=== PATIENT | male | born 1975 | race Caucasian/White ===

== ENCOUNTER 2017-05-24 16:27 | Inpatient (IN) | payer MEDICARE, MEDICAID ==
[~2017-05-24] VITALS: Ht 167.6 cm; Wt 90.9 kg
[~2017-05-24 16:27] MED LIST: ATEN-51 PO; ATOR10TA65 PO; LEVO88TA42 PO; METF500T4 PO
[2017-05-24 16:29] VITALS: Ht 167.6 cm; Wt 90.9 kg
--- NOTE | 2017-05-24 18:14 | RADRPT ---
PROCEDURE: XR Chest. CLINICAL INDICATION: chest pain TECHNIQUE: Single frontal view of the chest was obtained COMPARISON: 03/12/2016 FINDINGS: The heart and mediastinum are within normal limits. There are mild bibasilar atelectatic changes. The lungs are otherwise clear. There is no pleural effusion or pneumothorax. RPTAT: AA IMPRESSION: Mild bibasilar atelectatic changes. .Marcellus Zhu MD, MD Date Time Electronically viewed and signed by .Marcellus Zhu MD, on 05/24/2017 18:14 .S/
[2017-05-24 18:17] LABS: BASOPHILS % 0.6 % (0.0-2.0); EOSINOPHILS # 0.1 10^3/ul (0.0-0.5); HEMATOCRIT 36.9 % (42.0-52.0); LYMPHOCYTES # 1.8 10^3/ul (0.8-2.9); LYMPHOCYTES % 36.2 % (15.0-51.0); MEAN CORPUSCULAR HEMOGLOBIN 31.4 pg (29.0-33.0); MEAN CORPUSCULAR HGB CONC 35.2 g/dl (32.0-37.0); MEAN CORPUSCULAR VOLUME 89.1 fl (82.0-101.0); MEAN PLATELET VOLUME 9.3 fl (7.4-10.4); MONOCYTE # 0.6 10^3/ul (0.3-0.9); MONOCYTES % 11.6 % (0.0-11.0); NEUTROPHIL # 2.4 10^3/ul (1.6-7.5); NEUTROPHILS % 49.2 % (39.0-77.0); PLATELET COUNT 247 10^3/UL (140-415); RED BLOOD COUNT 4.14 10^6/ul (4.70-6.10); RED CELL DISTRIBUTION WIDTH 12.6 % (11.5-14.5); WHITE BLOOD COUNT 4.9 10^3/ul (4.8-10.8)
[2017-05-24 18:22] LABS: POSITIVE DIFF N
[2017-05-24 18:32] LABS: INR 0.83; PROTIME 11.4 Sec (12.2-14.2); PT RATIO 0.9
[2017-05-24 18:33] LABS: PARTIAL THROMBOPLASTIN TIME 29.3 Sec (25.0-35.0)
[2017-05-24 18:38] LABS: ALANINE AMINOTRANSFERASE 89 IU/L (13-69); ALBUMIN 4.3 g/dl (3.3-4.9); ALBUMIN/GLOBULIN RATIO 1.22; ALKALINE PHOSPHATASE 82 IU/L (42-121); ANION GAP 17 (8-16); ASPARTATE AMINO TRANSFERASE 57 IU/L (15-46); BLOOD UREA NITROGEN 9 mg/dl (7-20); CARBON DIOXIDE 24 mmol/L (21-31); CHLORIDE 111 mmol/L (97-110); CREATININE 0.98 mg/dl (0.61-1.24); GLUCOSE 218 mg/dl (70-220); POTASSIUM 3.9 mmol/L (3.5-5.1); SODIUM 148 mmol/L (135-144); TOTAL PROTEIN 7.8 g/dl (6.1-8.1)
[2017-05-24 18:50] LABS: TROPONIN-I < 0.012 ng/ml (0.00-0.12)
--- NOTE | 2017-05-24 19:33 | RADRPT ---
PROCEDURE: CT head, without contrast. CLINICAL INDICATION: Fall with head injury. TECHNIQUE: Noncontrast CT examination of the head, with axial, sagittal and coronal reformatted im ages. Automated dose exposure control was employed. CTDI: 43.16 and DLP: 720.23. COMPARISON: None. FINDINGS: No acute hemorrhage. Subarachnoid spaces are substantially preserved and symmetric. Ventricles ar e unremarkable. No mass effect. Lambert-white matter distinction is preserved without evident decreased attenuation t o suggest acute or recent infarct. Sinuses and osseous structures are unremarkable. IMPRESSION: No acute process in the head. RPTAT: [facility] Physician Imani Date Time Electronically viewed and signed by Physician Imani on 05/24/2017 19:32 RS/
--- NOTE | 2017-05-24 20:21 | RADRPT ---
PROCEDURE: CT CERVICAL SPINE WITHOUT CONTRAST CLINICAL INDICATION: Intoxication, fall, head injury. TECHNIQUE: CT scan of the cervical spine was performed. No IV contrast was administered. Coronal and sagittal reformatted images were obtained from the axial source images. Images were reviewed on a high-resolution PACS workstation. Dose report: Total exam DLP: 488 mGy-cm. CDTIvol = 22 mGy. One or more of the following dose reduction techniques were used: Automated exposure control Adjustment of the mA and/or kV according to patient size. Use of iterative reconstruction technique. COMPARISON: None FINDINGS: The vertebral body heights are preserved. There are no acute fractures. Alignment is intact with s light straightening of the normal cervical lordosis. The craniocervical junction and C1-C2 articulat ion are intact. The prevertebral and paravertebral soft tissues are unremarkable. Findings at specific disc levels: C2-3: Normal disc height. No central canal or neural foraminal narrowing. Mild bilateral facet arthr opathy. C3-4: Normal disc height with prominent anterior endplate osteophytes. Small focus of gas within the anterior superior endplate of C4. Mild annular bulge with mild central canal narrowing. No neural f oraminal narrowing. C4-5: Normal disc height with very small anterior endplate osteophytes. No central canal or neural f oraminal narrowing. C5-6: Normal disc height. No central canal or neural foraminal narrowing. Mild to moderate left and mild right facet arthropathy. C6-7: Normal disc height with very small anterior endplate osteophytes. No central canal or neural f oraminal narrowing. Mild left facet arthropathy. C7-T1: Normal disc height. No central canal or neural foraminal narrowing. RPTAT: ZZ IMPRESSION: 1. No acute fracture or dislocation. 2. Mild degenerative disc disease with prominent anterior endplate osteophytes at C3-C4 with a mild annular bulge and mild central canal narrowing. 3. Mild/mild to moderate facet arthropathy bilaterally at C2-C3 and on the left at C5-C6 and C6-C7. .Nhi Yousif MD, MD Date Time Electronically viewed and signed by .Nhi Yousif MD, MD on 05/24/2017 20:21 .T/
[2017-05-24] MEDS ORDERED: SOD CHLORIDE 0.9% 1,000 ML IV ONE ×2 (22:00→22:30)
[2017-05-24] MEDS ORDERED: ACETAMINOPHEN 325 MG TAB PO ONE (23:00)
--- NOTE | 2017-05-25 00:23 | ERD ---
ER Documentation Chief Complaint Date/Time DATE: 05/25/17 TIME: 00:23 Chief Complaint BROUGHT BY RA 881, RUQ AP , VOMITING OF BLOOD X 1 HR, HX PANCREATITIS,ETOH HPI This is a 42 yo male with a PMH of HTN, HLD, DM, hypothyroidism, chronic daily EtOH abuse, previous bouts of pancreatitis who is presenting with 1-2 days of LUQ abd pain, nausea and vomiting. The patient initially reported blood in his vomit, but he later changed his story and said that his vomit was yellow/green. He also endorses chronic daily heavy drinking. He notes that he drank several beers today. He does not typically drink wine or liquor. The patient was initially lethargic but arousable. He was oriented 3, but not completely to situation. Initially told me that he had fallen and struck his head, but later in the course he did not believe that he fell today. The patient does feel sick, but he denies fever or chills. He denies headache. He denies chest pain or trouble breathing. He denies issues with bowel movements urination. He has had no diarrhea. He has had no blood in urine or stool that he is aware of. ROS All systems reviewed and are negative except as per history of present illness. Medications Home Meds Discontinued Reported Medications Metformin Hcl* (Metformin Hcl*) 500 Mg Tablet, 500 MG PO WITH BREAKFAST DINNE, # 30 TAB 02/03/16 Levothyroxine Sodium* (Levoxyl*) 88 Mcg Tablet, 88 MCG PO BEFORE BREAKFAST, #30 TAB 02/03/16 Atorvastatin Calcium (Atorvastatin Calcium) 10 Mg Tablet, 10 MG PO QHS, #30 TAB 02/03/16 Atenolol* (Atenolol*) 25 Mg Tablet, 25 MG PO BID, #60 TAB 02/03/16 Allergies Allergies: Coded Allergies: No Known Allergy (Verified , 05/24/17) PMhx/Soc History of Surgery: Yes (PICC Line Placement) Anesthesia Reaction: No Hx Neurological Disorder: No Hx Respiratory Disorders: No Hx Cardiac Disorders: Yes (SVT) Hx Psychiatric Problems: Yes (Depression,Opiate OD) Hx Miscellaneous Medical Probl: Yes (ETOH Ketoacidosis,Pancreatitis,R Ankle Injury,Fall) Hx Alcohol Use: Yes (5 cans of beer/day) Hx Substance Use: No Hx Tobacco Use: Yes Smoking Status: Current every day smoker FmHx Family History: coronary disease, diabetes Physical Exam Vitals Vital Signs Date Time Temp Pulse Resp B/P Pulse Ox O2 Delivery O2 Flow Rate FiO2 05/25/17 00:00 98.0 87 20 132/86 100 Room Air 05/24/17 21:45 98.0 97 20 125/84 95 Room Air 05/24/17 18:30 98.0 101 20 118/76 95 Room Air 05/24/17 16:29 98.0 92 20 140/100 7 Physical Exam Const: Lethargic, Arousable, NAD, Well developed, Well nourished Head: Atraumatic Eyes: Normal Conjunctiva ENT: Normal External Ears, Nose and Mouth. Neck: Full range of motion..~ No meningismus. Resp: Clear to auscultation bilaterally Cardio: Regular rate and rhythm, no murmurs Abd: Soft, non distended, LUQ tenderness. Normal bowel sounds Skin: No petechiae or rashes Back: No midline or flank tenderness Ext: No cyanosis, or edema Neur: Normal sensation and strength Psych: Intoxicated Result Diagram: 05/24/17 1805 05/24/17 180 Results 24 hrs Laboratory Tests Test 05/24/17 18:05 05/25/17 00:15 White Blood Count 4.910^3/ul Red Blood Count 4.1410^6/ul Hemoglobin 13.0g/dl Hematocrit 36.9% Mean Corpuscular Volume 89.1fl Mean Corpuscular Hemoglobin 31.4pg Mean Corpuscular Hemoglobin Concent 35.2g/dl Red Cell Distribution Width 12.6% Platelet Count 88116^3/UL Mean Platelet Volume 9.3fl Neutrophils % 49.2% Lymphocytes % 36.2% Monocytes % 11.6% Eosinophils % 1.0% Basophils % 0.6% Nucleated Red Blood Cells % 0.0/100WBC Neutrophils # 2.410^3/ul Lymphocytes # 1.810^3/ul Monocytes # 0.610^3/ul Eosinophils # 0.110^3/ul Basophils # 0.010^3/ul Nucleated Red Blood Cells # 0.010^3/ul Prothrombin Time 11.4Sec Prothrombin Time Ratio 0.9 INR International Normalized Ratio 0.83 Activated Partial Thromboplast Time 29.3Sec Sodium Level 148mmol/L Potassium Level 3.9mmol/L Chloride Level 111mmol/L Carbon Dioxide Level 24mmol/L Anion Gap 17 Blood Urea Nitrogen 9mg/dl Creatinine 0.98mg/dl Glucose Level 218mg/dl Calcium Level 9.0mg/dl Total Bilirubin 0.0mg/dl Direct Bilirubin 0.00mg/dl Indirect Bilirubin 0.0mg/dl Aspartate Amino Transf (AST/SGOT) 57IU/L Alanine Aminotransferase (ALT/SGPT) 89IU/L Alkaline Phosphatase 82IU/L Troponin I < 0.012ng/ml Total Protein 7.8g/dl Albumin 4.3g/dl Globulin 3.50g/dl Albumin/Globulin Ratio 1.22 Ethyl Alcohol Level 274.0mg/dl Lipase 470U/L Current Medications Medications (Trade) Dose Ordered Sig/Asher Route PRN Reason Start Time Stop Time Status Last Admin Dose Admin Sodium Chloride 1,000 ml @ 1,000 mls/hr Q1H ONCE IV 05/24/17 22:00 05/24/17 22:59 DC 05/24/17 21:33 Sodium Chloride (NS) 1,000 ml @ 1,000 mls/hr Q1H ONCE IV 05/24/17 22:30 05/24/17 23:29 DC 05/24/17 23:27 Acetaminophen (Tylenol Tab) 650 mg ONCE ONCE PO 05/24/17 23:00 05/24/17 23:01 DC 05/24/17 22:50 Procedures/MDM MDM The patient presents intoxicated. He also presents with left upper quadrant abdominal pain, and I do suspect pancreatitis. The patient initially described hematemesis, but he has not had any episodes in the emergency department and he later endorsed green/yellow vomit, so it is unclear if he truly had hematemesis. Blood work will need to be obtained and reviewed. Given the patient's uncertainty about head trauma, a CT scan will be completed of the head. Labs The patient has no leukocytosis or left shift. He is afebrile I do not suspect a systemic infection. The patient does have a mild anemia at 13, but this does not need to be emergently treated. I have less suspicion for hematemesis in this patient. The patient's CMP demonstrates elevated sodium and chloride. The patient will be given IV fluids in the emergency department. This is likely related to hemoconcentration. She does have mild elevation of his LFTs, likely related to his alcohol abuse. The rest of the CMP is unremarkable. Patient's lipase is elevated at 480. The patient is intoxicated with an elevated alcohol level. The patient not have a coagulopathy based on his INR. Imaging CTH FINDINGS: No acute hemorrhage. Subarachnoid spaces are substantially preserved and symmetric. Ventricles are unremarkable. No mass effect. Lambert- white matter distinction is preserved without evident decreased attenuation to suggest acute or recent infarct. Sinuses and osseous structures are unremarkable. IMPRESSION: No acute process in the head. Electronically viewed and signed by Physician Imani on 05/24/2017 19:32 CT C-spine IMPRESSION: No acute fracture or dislocation. Mild degenerative disc disease with prominent anterior endplate osteophytes at C3-C4 with a mild annular bulge and mild central canal narrowing. Mild/mild to moderate facet arthropathy bilaterally at C2-C3 and on the left at C5-C6 and C6-C7. Electronically viewed and signed by .Nhi Yousif MD, MD on 05/24/2017 20: 21 CXR IMPRESSION: Mild bibasilar atelectatic changes. Electronically viewed and signed by .Marcellus Zhu MD, on 05/24/2017 18: 14 Treatment/Disposition Patient was given IV fluids in the emergency department. He may require pain medication and antiemetics in the hospital. The patient will be admitted to the hospital with concerns of pancreatitis. He was accepted by Dr. Rivera at 12: 56 AM on May 25, 2017. He needs social work consultation regarding the need to quit drinking. EtOH withdrawal precautions will need to be maintained in the hospital. Departure Diagnosis: Primary Impression: Pancreatitis Chronicity: chronic Pancreatitis type: alcohol induced Qualified Code: K86.0 - Alcohol-induced chronic pancreatitis Additional Impressions: Abdominal pain Abdominal location: left upper quadrant Qualified Code: R10.12 - Left upper quadrant pain Nausea & vomiting Vomiting type: unspecified Vomiting Intractability: unspecified Qualified Code: R11.2 - Nausea and vomiting, intractability of vomiting not specified, unspecified vomiting type Condition: IRINEO Luis MD May 25, 2017 00:23
[2017-05-25] MEDS ORDERED: LORAZEPAM 2 MG INJ IV PRN ×2 (04:00)
[2017-05-25] MEDS ORDERED: ALBUTEROL 0.083% (NEB) 2.5 MG/3 ML AMP NEB PRN (04:00)
[2017-05-25] MEDS ORDERED: ONDANSETRON 4 MG INJ IV PRN (04:00)
[2017-05-25] MEDS ORDERED: NACL 0.9% 3 ML SYG IV SCH (04:00)
[2017-05-25] MEDS: DEXTROSE 5%-0.45% NACL 1,000 ML IV SCH ×4 (04:30→23:41)
[2017-05-25] MEDS: morphine 4 MG/ML VIAL IV PRN ×4 (04:31→20:50)
[2017-05-25 05:38] LABS: BASOPHILS % 0.5 % (0.0-2.0); EOSINOPHILS # 0.1 10^3/ul (0.0-0.5); EOSINOPHILS % 3.1 % (0.0-7.0); HEMATOCRIT 35.5 % (42.0-52.0); HEMOGLOBIN 11.9 g/dl (14.0-18.0); LYMPHOCYTES # 1.4 10^3/ul (0.8-2.9); LYMPHOCYTES % 32.5 % (15.0-51.0); MEAN CORPUSCULAR HEMOGLOBIN 30.4 pg (29.0-33.0); MEAN CORPUSCULAR HGB CONC 33.5 g/dl (32.0-37.0); MEAN CORPUSCULAR VOLUME 90.6 fl (82.0-101.0); MONOCYTE # 0.5 10^3/ul (0.3-0.9); NEUTROPHIL # 2.1 10^3/ul (1.6-7.5); NEUTROPHILS % 50.7 % (39.0-77.0); PLATELET COUNT 178 10^3/UL (140-415); RED BLOOD COUNT 3.92 10^6/ul (4.70-6.10); WHITE BLOOD COUNT 4.2 10^3/ul (4.8-10.8)
[2017-05-25 06:09] LABS: ALBUMIN 3.6 g/dl (3.3-4.9); ALBUMIN/GLOBULIN RATIO 1.16; CALCIUM 8.2 mg/dl (8.4-10.2); CHOL/HDL RATIO 4.3 RATIO; CREATININE 0.82 mg/dl (0.61-1.24); MAGNESIUM 1.8 mg/dl (1.7-2.5); PHOSPHORUS 3.4 mg/dl (2.5-4.9); POTASSIUM 3.8 mmol/L (3.5-5.1); TOTAL PROTEIN 6.7 g/dl (6.1-8.1)
[2017-05-25 07:00] VITALS: TEMP 97.8
--- NOTE | 2017-05-25 07:07 | HP ---
Date/Time of Note Date/Time of Note DATE: 05/25/17 TIME: 06:57 Assessment/Plan VTE Prophylaxis VTE Prophylaxis Intervention: SCD's Lines/Catheters IV Catheter Type (from Nrs): Saline Lock Assessment/Plan Assessment/Plan 1. Alcoholic pancreatitis -N.p.o. with IV fluid -Pain management 2. Abdominal pain, secondary to above 3. Elevated transaminases, most likely secondary to alcoholic liver disease -Patient also with a history of fatty liver -Monitor for now 4. Hypernatremia -Likely from volume contraction -Check a.m. lab 5. Alcohol abuse -Advised about importance of abstinence -Social work consult 6. History HyperTriglyceridemia -will check fasting lipid in a.m. HPI/ROS Admit Date/Time Admit Date/Time Hx of Present Illness This is a 42-year-old male with a history of alcohol abuse, pancreatitis and dyslipidemia who presented to the emergency department complaining of abdominal pain. Pain is diffuse but it is worse on the left side. He said he drinks beer on a daily basis. He reported associated nausea and bilious vomiting. When he presented to the ER his lipase was 470, sodium 148, AST 57 and ALT 89. PMH/Family/Social Social History Smoking Status: Current every day smoker Exam/Review of Systems Vital Signs Vitals Vital Signs Date Time Temp Pulse Resp B/P Pulse Ox O2 Delivery O2 Flow Rate FiO2 05/25/17 06:00 98.0 85 20 148/100 100 Room Air Exam Constitutional: alert, oriented, well developed Head: atraumatic, normocephalic Eyes: EOMI, PERRL Respiratory: clear to auscultation, normal air movement Cardiovascular: nl pulses, regular rate and rhythm Gastrointestinal: soft, tender Extremities: normal pulses Labs Result Diagram: 05/25/1751905/25/17519 Medications Medications Current Medications Dextrose/Sodium Chloride (D5-1/2ns) 1,000 ml @ 150 mls/hr Q6H40M IV Last administered on 05/25/17 04:30; Admin Dose 150 MLS/HR; Start 05/25/17 at 03:51 Ondansetron HCl (Zofran Inj) 4 mg Q6H PRN IV NAUSEA AND/OR VOMITING Last administered on 05/25/17 04:30; Admin Dose 4 MG; Start 05/25/17 at 04:00 Morphine Sulfate (morphine) 4 mg Q4H PRN IV pain Last administered on t 04:31; Admin Dose 4 MG; Start 05/25/17 at 04:00 Famotidine (Pepcid Iv) 20 mg Q12 IV ; Start 05/25/17 at 09:00 Enoxaparin Sodium 40 mg 40 mg DAILY SC ; Start 05/25/17 at 09:00 Multivitamins/ Thiamine HCl/ Folic Acid/Sodium Chloride (Mvi Adult/ Vitamin B1/ Folic Acid/NS) 1,011.2 ml @ 125 mls/ hr DAILY@09 IVPB ; Start 05/25/17 at 09:00 ; Stop 05/28/17 at 08:00 Lorazepam (Ativan) 1 mg Q4H PRN IV anxiety; Start 05/25/17 at 04:00 Lorazepam (Ativan) 2 mg Q1H PRN IV withdrawal; Start 05/25/17 at 04:00 Chlordiazepoxide (Librium) 25 mg TID PO ; Start 05/25/17 at 09:00 DIANE WEINER MD May 25, 2017 07:07
[2017-05-25 08:00] VITALS: BP 145/78; PULSE 78; RESP 18
[2017-05-25] MEDS: ENOXAPARIN 40 MG/0.4 ML SYG SC SCH (09:00)
[2017-05-25] MEDS: CHLORDIAZEPOXIDE 25 MG CAP PO SCH ×3 (09:00→20:46)
[2017-05-25] MEDS: MULTIVITAMINS 10 ML, THIAMINE 100 MG, FOLIC ACID 1 MG in SOD CHLORIDE 0.9% 1,000 ML IVPB SCH (09:31)
[2017-05-25] MEDS: FAMOTIDINE 20 MG INJ IV SCH ×2 (09:31→20:47)
[2017-05-25 14:00] VITALS: BP_SYST 141; BP_SYST 157; BP_DIAS 79; BP_DIAS 86; PULSE 77; RESP 18; RESP 19
[2017-05-25] MEDS ORDERED: MTF1000T PO (14:12)
[2017-05-25] MEDS: INSULIN ASPART [NOVOLOG] 3 ML PEN SC SCH ×2 (18:07→23:47)
[2017-05-25] MEDS ORDERED: GLUCAGON 1 MG INJ IM PRN (18:30)
[2017-05-25] MEDS ORDERED: GLUCOSE GEL 15 GRAM TUBE BUCCAL PRN (18:30)
[2017-05-25] MEDS ORDERED: DEXTROSE 50% 50 ML SYRINGE IV PRN ×2 (18:30)
[2017-05-25] MEDS ORDERED: GLUCOSE GEL 15 GRAM TUBE PO PRN ×2 (18:30)
[2017-05-25 19:43] VITALS: BP 150/91; RESP 18
[2017-05-26] MEDS: morphine 4 MG/ML VIAL IV PRN ×2 (01:07→05:37)
[2017-05-26 01:45] VITALS: BP 143/96; RESP 18
[2017-05-26 05:10] LABS: BASOPHILS % 0.4 % (0.0-2.0); EOSINOPHILS # 0.2 10^3/ul (0.0-0.5); EOSINOPHILS % 3.8 % (0.0-7.0); HEMATOCRIT 35.6 % (42.0-52.0); HEMOGLOBIN 12.2 g/dl (14.0-18.0); LYMPHOCYTES # 1.7 10^3/ul (0.8-2.9); MEAN CORPUSCULAR HEMOGLOBIN 30.8 pg (29.0-33.0); MEAN CORPUSCULAR HGB CONC 34.3 g/dl (32.0-37.0); MEAN CORPUSCULAR VOLUME 89.9 fl (82.0-101.0); MEAN PLATELET VOLUME 9.1 fl (7.4-10.4); MONOCYTE # 0.6 10^3/ul (0.3-0.9); MONOCYTES % 12.6 % (0.0-11.0); NEUTROPHIL # 2.4 10^3/ul (1.6-7.5); NEUTROPHILS % 48.2 % (39.0-77.0); PLATELET COUNT 195 10^3/UL (140-415); RED BLOOD COUNT 3.96 10^6/ul (4.70-6.10); RED CELL DISTRIBUTION WIDTH 12.1 % (11.5-14.5); WHITE BLOOD COUNT 4.9 10^3/ul (4.8-10.8)
[2017-05-26 05:30] LABS: CALCIUM 7.9 mg/dl (8.4-10.2); CREATININE 0.89 mg/dl (0.61-1.24); MAGNESIUM 1.7 mg/dl (1.7-2.5); PHOSPHORUS 2.8 mg/dl (2.5-4.9); POTASSIUM 3.6 mmol/L (3.5-5.1)
[2017-05-26] MEDS: INSULIN ASPART [NOVOLOG] 3 ML PEN SC SCH ×3 (06:00→18:00)
[2017-05-26] MEDS: DEXTROSE 5%-0.45% NACL 1,000 ML IV SCH ×2 (06:26→13:11)
[2017-05-26 07:43] VITALS: BP 140/84; RESP 19
[2017-05-26] MEDS ORDERED: ATENOLOL 25 MG TAB PO SCH (09:00)
--- NOTE | 2017-05-26 09:22 | PN ---
Date/Time of Note Date/Time of Note DATE: 05/26/17 TIME: 09:17 Assessment/Plan VTE Prophylaxis VTE Prophylaxis Intervention: LMWH Lines/Catheters IV Catheter Type (from Nrs): Peripheral IV Urinary Cath still in place: No Assessment/Plan Assessment/Plan 1. Abdominal pain - Diffusely distended abdomen with no BMs since admission but is passing flatus - Will order CT abd/pelvis with and without contrast to r/o SBO vs other abnormality - Will keep NPO 2. Alcoholic pancreatitis - N.p.o. with IV fluid - Pain management 3. Elevated transaminases, most likely secondary to alcoholic liver disease - Patient also with a history of fatty liver - Will continue to monitor 4. Hypernatremia- resolved -Likely from volume contraction 5. Alcohol abuse - Advised about importance of abstinence - Social work consult - On librium and will taper 6. History HyperTriglyceridemia - certified personal finance counselor about proper diet and exercise - TG 341 Subjective 24 Hr Interval Summary Free Text/Dictation Patient seen and examined. C/o severe abdominal pain with nausea. He is receiving Morphine with minimal relief. Is experiencing flatus but denies any BMs since admission. Denies chest pain, SOB, dizziness, vomiting, or headaches. Exam/Review of Systems Vital Signs Vitals Vital Signs Date Time Temp Pulse Resp B/P Pulse Ox O2 Delivery O2 Flow Rate FiO2 05/26/17 07:43 98.0 82 19 140/84 98 05/25/17 14:00 Room Air Intake and Output 05/25/17 05/25/17 05/26/17 15:00 23:00 07:00 Intake Total 1000 ml 2050 ml Output Total 1500 ml Balance 1000 ml 550 ml Exam Constitutional: alert, oriented, well developed, distress secondary to pain Head: atraumatic, normocephalic Eyes: EOMI, PERRL Respiratory: clear to auscultation, normal air movement Cardiovascular: nl pulses, regular rate and rhythm Gastrointestinal: distended, tender in RUQ, hypoactive BS, tympanic Extremities: normal pulses Results Result Diagram: 05/26/17 0444 05/26/17 0444 Results 24 hrs Laboratory Tests Test 05/25/17 17:52 05/25/17 23:43 05/26/17 04:44 05/26/17 05:39 Bedside Glucose 125 117 136 White Blood Count 4.9 Red Blood Count 3.96 L Hemoglobin 12.2 L Hematocrit 35.6 L Mean Corpuscular Volume 89.9 Mean Corpuscular Hemoglobin 30.8 Mean Corpuscular Hemoglobin Concent 34.3 Red Cell Distribution Width 12.1 Platelet Count 195 Mean Platelet Volume 9.1 Neutrophils % 48.2 Lymphocytes % 34.0 Monocytes % 12.6 H Eosinophils % 3.8 Basophils % 0.4 Nucleated Red Blood Cells % 0.0 Neutrophils # 2.4 Lymphocytes # 1.7 Monocytes # 0.6 Eosinophils # 0.2 Basophils # 0.0 Nucleated Red Blood Cells # 0.0 Sodium Level 138 Potassium Level 3.6 Chloride Level 107 Carbon Dioxide Level 29 Anion Gap 6 L Blood Urea Nitrogen 6 L Creatinine 0.89 Glucose Level 133 Calcium Level 7.9 L Phosphorus Level 2.8 Magnesium Level 1.7 Medications Medications Current Medications Dextrose/Sodium Chloride (D5-1/2ns) 1,000 ml @ 150 mls/hr Q6H40M IV Last administered on 05/26/17 06:26; Admin Dose 150 MLS/HR; Start 05/25/17 at 03:51 Ondansetron HCl (Zofran Inj) 4 mg Q6H PRN IV NAUSEA AND/OR VOMITING Last administered on 05/25/17 04:30; Admin Dose 4 MG; Start 05/25/17 at 04:00 Morphine Sulfate (morphine) 4 mg Q4H PRN IV pain Last administered on 05:37; Admin Dose 4 MG; Start 05/25/17 at 04:00 Famotidine (Pepcid Iv) 20 mg Q12 IV Last administered on 05/25/17 20:47; Admin Dose 20 MG; Start 05/25/17 at 09:00 Enoxaparin Sodium 40 mg 40 mg DAILY SC ; Start 05/25/17 at 09:00 Multivitamins/ Thiamine HCl/ Folic Acid/Sodium Chloride (Mvi Adult/ Vitamin B1/ Folic Acid/NS) 1,011.2 ml @ 125 mls/ hr DAILY@09 IVPB Last administered on 09:31; Admin Dose 125 MLS/HR; Start 05/25/17 at 09:00; Stop 05/28/17 at 08:00 Lorazepam (Ativan) 1 mg Q4H PRN IV anxiety; Start 05/25/17 at 04:00 Lorazepam (Ativan) 2 mg Q1H PRN IV withdrawal; Start 05/25/17 at 04:00 Chlordiazepoxide (Librium) 25 mg TID PO Last administered on 05/25/17t 20:46; Admin Dose 25 MG; Start 05/25/17 at 09:00 Atenolol (Tenormin) 25 mg DAILY PO ; Start 05/26/17 at 09:00 Insulin Aspart (Novolog Insulin Pen) NOVOLOG *MILD* ALGORITHM Q6 SC ; Start at 18:30 Miscellaneous Information 1 ea NOTE XX ; Start 05/25/17 at 18:30 Glucose (Glutose) 15 gm Q15M PRN PO DECREASED GLUCOSE; Start 05/25/17 at 18:30 Glucose (Glutose) 22.5 gm Q15M PRN PO DECREASED GLUCOSE; Start 05/25/17 at 18: 30 Dextrose (D50w Syringe) 25 ml Q15M PRN IV DECREASED GLUCOSE; Start 05/25/17 at 18:30 Dextrose (D50w Syringe) 50 ml Q15M PRN IV DECREASED GLUCOSE; Start 05/25/17 at 18:30 Glucagon (Glucagen) 1 mg Q15M PRN IM DECREASED GLUCOSE; Start 05/25/17 at 18:30 Glucose (Glutose) 15 gm Q15M PRN BUCCAL DECREASED GLUCOSE; Start 05/25/17 at 18 :30 Hydromorphone HCl (Dilaudid) 1 mg Q4H PRN IV SEVERE PAIN LEVEL 7-10; Start at 09:30; Status MONIK SAPP MD May 26, 2017 09:22
[2017-05-26] MEDS ORDERED: BARIUM SULF 2% 450 ML BTL (BERRY SMOOTHIE) PO ONE (09:30)
[2017-05-26] MEDS: CHLORDIAZEPOXIDE 25 MG CAP PO SCH ×2 (09:56→14:00)
[2017-05-26] MEDS: FAMOTIDINE 20 MG INJ IV SCH (09:56)
[2017-05-26] MEDS: HYDROmorphONE 1 MG/ML SYG IV PRN ×3 (09:59→18:07)
[2017-05-26] MEDS: ENOXAPARIN 40 MG/0.4 ML SYG SC SCH (10:08)
[2017-05-26] MEDS ORDERED: SOD CHLORIDE 0.9% 100 ML ONE (13:15)
[2017-05-26] MEDS ORDERED: IODIXANOL LOCM 100 ML BTL ONE (13:15)
[2017-05-26] MEDS: MULTIVITAMINS 10 ML, THIAMINE 100 MG, FOLIC ACID 1 MG in SOD CHLORIDE 0.9% 1,000 ML IVPB SCH (14:11)
--- NOTE | 2017-05-26 15:53 | RADRPT ---
PROCEDURE: CT abdomen and pelvis with contrast. CLINICAL INDICATION: Worsening abdominal pain and abdominal distension. TECHNIQUE: CT scan of the abdomen and pelvis with contrast was performed after the uneventful intrav enous administration of 100 cc of Visipaque 320. Coronal and sagittal reformatted images were obtain ed from the axial source images. The total exam CTDI equals 16.66 mGy and the total exam DLP equals 1091.46 mGy-cm. One or more of the following dose reduction techniques were used: - Automated exposure control. - Adjustment of the mA and/or kV according to patient size. - Use of iterative reconstruction technique. COMPARISON: CT dated 04/15/2013. FINDINGS: Visualized lower thorax: The visualized lung bases are clear. The visualized heart is unremarkable. Hepatobiliary system and spleen: There is diffuse fatty infiltration of the liver, which is enlarge d measuring 19.7 cm in length. No focal hepatic lesion is identified. There is no intra or extrahepa tic biliary ductal dilatation. The gallbladder is unremarkable. The spleen is unremarkable. The panc reas is unremarkable. Adrenal glands and genitourinary system: The adrenal glands are unremarkable. There is a duplicated right renal collecting system with similar atrophy of the lower pole moiety. There are no renal mas ses or hydronephrosis. The urinary bladder is unremarkable. The prostate gland and seminal vesicles are unremarkable. Gastrointestinal system: The stomach and small bowel are unremarkable. There is no bowel wall thick ening or evidence of obstruction. The appendix is not identified, but there are no secondary finding s of appendicitis. Peritoneum, vascular system, lymphatics: There is no free intraperitoneal air or free fluid. There is no mesenteric or retroperitoneal adenopathy. The aorta is nonaneurysmal. Musculoskeletal system and soft tissues: There is mild multilevel degenerative enthesopathy. There are no concerning osseous lesions. The soft tissues are unremarkable. IMPRESSION: 1. Hepatomegaly and hepatic steatosis. 2. Duplicated right renal collecting system, a normal anatomical variant. RPTAT: HLBP .Luis Alberto Neville MD, MD Date Time Electronically viewed and signed by .Luis Alberto Neville MD, MD on 05/26/2017 15:53 .P/
--- NOTE | 2017-05-27 08:57 | DS ---
Date/Time of Note Date/Time of Note DATE: 05/27/17 TIME: 08:57 Discharge Summary Admission/Discharge Info Admit Date/Time May 25, 2017 at 06:35 Discharge Date/Time May 26, 2017 at 18:40 Discharge Diagnosis Acute pancreatitis Patient Condition: Fair Hx of Present Illness This is a 42-year-old male with a history of alcohol abuse, pancreatitis and dyslipidemia who presented to the emergency department complaining of abdominal pain. Pain is diffuse but it is worse on the left side. He said he drinks beer on a daily basis. He reported associated nausea and bilious vomiting. When he presented to the ER his lipase was 470, sodium 148, AST 57 and ALT 89. Hospital Course Patient was admitted and kept NPO and started on IVF and pain control. Abdominal pain was worsening and CT scan of abdomen and pelvis was ordered. He was found to have hepatomegaly and steatosis. Patient was found eating by nurse and was told he is supposed to keep NPO due to his pancreatitis. He was also found drinking water as well. MD nursing education specialist allowed patient to start a diet and be discharged later if tolerating but patient decided he wanted to leave AMA and eat at home despite being advised to stay inpatient. Home Meds Reported Medications Metformin* (Glucophage*) 1,000 Mg Tablet, 1000 MG PO BID, #60 TAB 05/25/17 Discontinued Reported Medications Metformin Hcl* (Metformin Hcl*) 500 Mg Tablet, 500 MG PO WITH BREAKFAST DINNE, # 30 TAB 02/03/16 Levothyroxine Sodium* (Levoxyl*) 88 Mcg Tablet, 88 MCG PO BEFORE BREAKFAST, #30 TAB 02/03/16 Atorvastatin Calcium (Atorvastatin Calcium) 10 Mg Tablet, 10 MG PO QHS, #30 TAB 02/03/16 Atenolol* (Atenolol*) 25 Mg Tablet, 25 MG PO BID, #60 TAB 02/03/16 Follow-up Plan Return to ED if experiencing worsening abdominal pain. Establish care with PCP. Primary Care Provider Care Physician No Primary Time spent on discharge: < 30 minutes Pending Labs Laboratory Tests Test 05/26/17 14:02 05/26/17 18:11 Bedside Glucose 130mg/dL (70-220) 106mg/dL (70-220) MONIK MICHELE MD May 27, 2017 08:57
== END 2017-05-26 18:40 | disposition left against medical advice (07) | DRG 439 ==
LOC: E/R 16:27 → MS1 05-25 06:35 → UNDOADMIN 05-25 06:36 → MS1 05-25 06:36
PROVIDERS: ADMIT Internal Medicine; ATTEND Internal Medicine
DX: K85.20 Alcohol induced acute pancreatitis without necrosis or infection (principal); E87.0 Hyperosmolality and hypernatremia; K70.9 Alcoholic liver disease, unspecified; F10.20 Alcohol dependence, uncomplicated; E78.1 Pure hyperglyceridemia; F17.210 Nicotine dependence, cigarettes, uncomplicated; R16.0 Hepatomegaly, not elsewhere classified
CPT/HCPCS: 36415; 70450; 71010; 72125; 74177; 80048; 80053; 80061; 80306; 82962; 83690; 83735; 84100; 84484; 85025; 85610; 85730; 86850; 86900; 86901; 93005; 96361; 96374; 96375; J1170; J1650; J1815; J2270; J2405; J3411; J7030; J7042; Q9967

== ENCOUNTER 2019-02-25 19:13 | Emergency (ER) | payer MEDICAID, MEDICARE ==
[~2019-02-25] VITALS: Ht 172.7 cm; Wt 94.9 kg
[~2019-02-25 19:13] MED LIST changes: -ATEN-51 PO; -ATOR10TA65 PO; -LEVO88TA42 PO; -METF500T4 PO; +MTF1000T PO
[2019-02-25 20:34] VITALS: BP 143/86; PULSE 114; RESP 18; Ht 172.7 cm; Wt 94.9 kg
== END 2019-02-25 22:00 | disposition left against medical advice (07) ==
LOC: E/R 19:13
DX: Z53.21 Procedure and treatment not carried out due to patient leaving prior to being seen by health care provider (principal)

== ENCOUNTER 2019-02-25 23:36 | Emergency (ER) | payer SELFPAY ==
[~2019-02-25] VITALS: Ht 170.2 cm; Wt 100.0 kg
[2019-02-25 23:42] VITALS: BP 148/92; PULSE 113; RESP 20; Ht 170.2 cm; Wt 100.0 kg
== END 2019-02-26 03:11 | disposition left against medical advice (07) ==
LOC: E/R 23:36
DX: Z53.21 Procedure and treatment not carried out due to patient leaving prior to being seen by health care provider (principal)

== ENCOUNTER 2019-03-15 20:55 | Inpatient (IN) | payer MEDICARE ==
[~2019-03-15] VITALS: Ht 172.7 cm; Wt 94.1 kg
[2019-03-15] MEDS ORDERED: ONDANSETRON 4 MG INJ IV STA (23:31)
[2019-03-15] MEDS ORDERED: CEFTRIAXONE 1 GM/50 ML (PMX) 50 ML IVPB STA (23:31)
[2019-03-15] MEDS ORDERED: SOD CHLORIDE 0.9% 500 ML IV STA (23:31)
[2019-03-15] MEDS ORDERED: OCTREOTIDE 50 MCG in SOD CHLORIDE 0.9% 25 ML IVPB STA (23:31)
[2019-03-15] MEDS ORDERED: PANTOPRAZOLE IV 80 MG in SOD CHLORIDE 0.9% 100 ML IVPB STA (23:31)
[2019-03-15] MEDS ORDERED: OCTREOTIDE 500 MCG in SOD CHLORIDE 0.9% 49 ML IV STA (23:31)
[2019-03-15] MEDS ORDERED: PANTOPRAZOLE IV 80 MG in SOD CHLORIDE 0.9% 100 ML IV STA (23:31)
[2019-03-15] MEDS ORDERED: HYDROmorphONE 0.5 MG/0.5 ML SYG IV STA (23:41)
[2019-03-16] MEDS ORDERED: SOD CHLORIDE 0.9% 1,000 ML IV SCH (03:59)
[2019-03-16] MEDS ORDERED: ONDANSETRON 4 MG INJ IV PRN ×2 (04:00)
[2019-03-16] MEDS ORDERED: NACL 0.9% 3 ML SYG IV SCH (04:00)
[2019-03-16] MEDS ORDERED: ACETAMINOPHEN 325 MG TAB PO PRN (04:00)
[2019-03-16] MEDS ORDERED: ACETAMINOPHEN 650 MG SUPP PR PRN (04:00)
--- NOTE | 2019-03-16 05:26 | ERD ---
ER Documentation Chief Complaint Chief Complaint bib ra 881 c/o abd pain/etoh/vomiting HPI This is a very pleasant 43-year-old male brought in by rescue with complaints of abdominal pain and vomiting coffee-ground. Patient has a history of chronic alcoholism he said he said 10-20 beers per day. He said history of esophageal varices in the past along with pancreatic cancer resection. ROS All systems reviewed and are negative except as per history of present illness. Medications Home Meds Discontinued Reported Medications Metformin* (Glucophage*) 1,000 Mg Tablet, 1000 MG PO BID, #60 TAB 05/25/17 Allergies Allergies: Coded Allergies: No Known Allergy (Unverified , 03/16/19) PMhx/Soc History of Surgery: Yes (tib-fib with screws and pins, hernia repair abdomen) Anesthesia Reaction: No Hx Neurological Disorder: No Hx Respiratory Disorders: No Hx Cardiac Disorders: Yes (HTN) Hx Psychiatric Problems: No Hx Miscellaneous Medical Probl: No Hx Alcohol Use: Yes Hx Substance Use: No Hx Tobacco Use: No Smoking Status: Never smoker Physical Exam Vitals Vital Signs Date Temp Pulse Resp B/P (MAP) Pulse Ox O2 O2 Flow FiO2 Time Delivery Rate 03/16/19 90 17 103/74 99 Nasal 2.0 03:00 (84) Cannula 03/16/19 93 19 96/65 (75) 96 Room Air 02:00 03/16/19 98 22 99/63 (75) 97 Room Air 01:30 03/15/19 98.2 118 18 145/81 98 21:07 (102) Physical Exam Const: No acute distress Head: Atraumatic Eyes: Normal Conjunctiva ENT: Normal External Ears, Nose and Mouth. Neck: Full range of motion. No meningismus. Resp: Clear to auscultation bilaterally Cardio: Regular rate and rhythm, no murmurs Abd: Soft, non tender, non distended. Normal bowel sounds Skin: No petechiae or rashes Back: No midline or flank tenderness Ext: No cyanosis, or edema Neur: Awake and alert Psych: Normal Mood and Affect Result Diagram: 03/15/19 6741 03/15/19 9286 Results 24 hrs Laboratory Tests Test 03/15/19 23:36 White Blood Count 5.3 10^3/ul Red Blood Count 4.33 10^6/ul Hemoglobin 13.8 g/dl Hematocrit 38.3 % Mean Corpuscular Volume 88.5 fl Mean Corpuscular Hemoglobin 31.9 pg Mean Corpuscular Hemoglobin Concent 36.0 g/dl Red Cell Distribution Width 13.0 % Platelet Count 301 10^3/UL Mean Platelet Volume 9.0 fl Immature Granulocytes % 0.900 % Neutrophils % 51.9 % Lymphocytes % 35.2 % Monocytes % 10.2 % Eosinophils % 0.9 % Basophils % 0.9 % Nucleated Red Blood Cells % 0.0 /100WBC Immature Granulocytes # 0.050 10^3/ul Neutrophils # 2.8 10^3/ul Lymphocytes # 1.9 10^3/ul Monocytes # 0.5 10^3/ul Eosinophils # 0.1 10^3/ul Basophils # 0.1 10^3/ul Nucleated Red Blood Cells # 0.0 10^3/ul Prothrombin Time 11.5 Sec Prothrombin Time Ratio 0.9 INR International Normalized Ratio 0.83 Activated Partial Thromboplast Time 30.6 Sec Sodium Level 145 mmol/L Potassium Level 4.0 mmol/L Chloride Level 112 mmol/L Carbon Dioxide Level 19 mmol/L Anion Gap 14 Blood Urea Nitrogen 15 mg/dl Creatinine 0.85 mg/dl Est Glomerular Filtrat Rate mL/min > 60 mL/min Glucose Level 220 mg/dl Calcium Level 8.4 mg/dl Total Bilirubin 0.2 mg/dl Direct Bilirubin 0.00 mg/dl Indirect Bilirubin 0.2 mg/dl Aspartate Amino Transf (AST/SGOT) 38 IU/L Alanine Aminotransferase (ALT/SGPT) 44 IU/L Alkaline Phosphatase 76 IU/L Troponin I < 0.012 ng/ml Total Protein 8.0 g/dl Albumin 4.3 g/dl Globulin 3.70 g/dl Albumin/Globulin Ratio 1.16 Current Medications Medications Dose Sig/Asher Start Time Status Last (Trade) Ordered Route PRN Stop Time Admin Dose Reason Admin Sodium 500 ml @ Q1H STAT 03/15/19 DC 03/15/19 Chloride 500 mls/hr IV 23:31 03/16/19 23:48 00:30 Pantoprazole 100 ml @ ONCE STAT 03/15/19 DC 03/16/19 80 mg/Sodium 400 mls/hr IVPB 23:31 03/15/19 00:02 Chloride 23:45 Pantoprazole 100 ml @ ONCE STAT 03/15/19 03/16/19 80 mg/Sodium 10 mls/hr IV 23:31 03/16/19 00:08 Chloride 09:30 Octreotide 26 ml @ Q16M STAT 03/15/19 DC 03/16/19 Acetate 50 100 mls/hr IVPB 23:31 03/15/19 00:02 mcg/ Sodium 23:46 Chloride Octreotide 50 ml @ 5 ONCE STAT 03/15/19 03/16/19 Acetate 500 mls/hr IV 23:31 03/16/19 00:08 mcg/ Sodium 09:30 Chloride Ondansetron 4 mg ONCE STAT 03/15/19 DC 03/15/19 HCl (Zofran IV 23:31 03/15/19 23:45 Inj) 23:32 Ceftriaxone 50 ml @ ONCE STAT 03/15/19 DC 03/15/19 Sodium 100 mls/hr IVPB 23:31 03/16/19 23:45 00:00 1 mg ONCE STAT 03/15/19 DC 03/15/19 Hydromorphone IV 23:41 03/15/19 23:45 HCl 23:42 (Dilaudid) Ondansetron 4 mg ER BRIDGE 03/16/19 HCl (Zofran PRN IV 04:00 Inj) NAUSEA/VOMITI 03/17/19 03:59 NG 650 mg ER BRIDGE 03/16/19 Acetaminophen PRN PO 04:00 (Tylenol .MILD PAIN 03/17/19 03:59 Tab) 1-3 OR TEMP Sodium 1,000 ml @ Q20H IV 03/16/19 Chloride 50 mls/hr 03:59 IV Flush 3 ml PER 03/16/19 (NS 3 ml) PROTOCOL IV 04:00 Ondansetron 4 mg Q6H PRN 03/16/19 HCl (Zofran IV 04:00 Inj) NAUSEA/VOMITI NG 650 mg Q6H PRN 03/16/19 Acetaminophen DE .PAIN 1-3 04:00 (Tylenol OR TEMP Supp) Morphine 2 mg Q4H PRN 03/16/19 Sulfate IV .PAIN 04:00 (morphine) 7-10 Octreotide 100 ml @ 5 Q20H IV 03/16/19 Acetate 1 mls/hr 04:30 mg/ Dextrose Pantoprazole 100 ml @ Q10H IV 03/16/19 80 mg/Sodium 10 mls/hr 04:30 Chloride Lorazepam 1 mg Q4H PRN 03/16/19 (Ativan) IV CONTROL 04:30 WITHDRAWAL SYMPTOMS Thiamine 200 mg DAILY IM 03/16/19 HCl 04:30 (Vitamin B1) 03/21/19 04:29 Procedures/MDM EKG: Rate/Rhythm: [Normal Sinus Rhythm] QRS, ST, T-waves: [No changes consistent w/ acute ischemia] Impression: [No evidence of ischemia or arrhythmia] Chest X-ray 1V Interpreted by me: Soft Tissue: No acute abnormalities Bones: No acute abnormalities Mediastinum/Cardiac Silhouette/Lungs: [No acute abnormalities] Medical decision making: This is a 43-year-old male with possible upper GI bleed. Start on Sandostatin and Protonix drip. Patient will be admitted to [facility] emetry to Dr. Flores for further evaluation management possible GI consultation Departure Diagnosis: Primary Impression: Upper GI bleed Condition: Stable DIANE AVILA Mar 16, 2019 05:26
[2019-03-16] MEDS ORDERED: ONDANSETRON 4 MG INJ IV STA (05:27)
[2019-03-16] MEDS ORDERED: HYDROmorphONE 1 MG/ML SYG IV STA (05:27)
[2019-03-16] MEDS ORDERED: SOD CHLORIDE 0.45% 1,000 ML IV SCH (06:00)
--- NOTE | 2019-03-16 08:05 | HP ---
Date/Time of Note Date/Time of Note DATE: 03/16/19 TIME: 07:58 Assessment/Plan VTE Prophylaxis SCD applied (from Nsg): Yes Pharmacological prophylaxis: NA/contraindicated Pharm contraindication: low risk/ambulating Lines/Catheters IV Catheter Type (from Nrsg): Saline Lock Assessment/Plan Hospital Course This is a 43-year-old male being admitted to the [facility] floor for: #1 acute upper GI bleed: Possibly secondary to underlying EtOH abuse. Sandostatin drip, Protonix drip. CBC every 6 hours. Will consult GI Suchov #2 abdominal pain: Patient does appear to have a distended and tender abdomen. His CT of the abdomen pelvis without contrast did not show any acute abnormalities. I will proceed with a CT of the abdomen pelvis with IV contrast to further evaluate. I will also order a lipase level given his history of EtOH as well as a history of pancreatitis. #3 alcohol abuse: Patient did have a blood alcohol level of 133. Will PRN Ativan, thiamine, folate, MVI #4 diabetes mellitus: We will check hemoglobin A 1C, insulin sliding scale #5 hypertension: Monitor patient blood pressures, PRN hydralazine #6 DVT GI prophylaxis: SCDs, Protonix drip Further treatment strategy will be implemented as per the clinical course Result Diagram: 03/16/1952703/16/19527 Results 24hrs Laboratory Tests Test 03/15/19 23:36 03/16/19 05:28 White Blood Count 5.3 4.2 #L Red Blood Count 4.33 L 3.94 L Hemoglobin 13.8 L 12.3 L Hematocrit 38.3 L 35.6 L Mean Corpuscular Volume 88.5 90.4 Mean Corpuscular Hemoglobin 31.9 31.2 Mean Corpuscular Hemoglobin Concent 36.0 34.6 Red Cell Distribution Width 13.0 13.2 Platelet Count 301 # 247 Mean Platelet Volume 9.0 9.0 Immature Granulocytes % 0.900 H 1.700 H Neutrophils % 51.9 40.9 Lymphocytes % 35.2 42.8 Monocytes % 10.2 12.5 H Eosinophils % 0.9 1.4 Basophils % 0.9 0.7 Nucleated Red Blood Cells % 0.0 0.0 Immature Granulocytes # 0.050 H 0.070 H Neutrophils # 2.8 1.7 Lymphocytes # 1.9 1.8 Monocytes # 0.5 0.5 Eosinophils # 0.1 0.1 Basophils # 0.1 0.0 Nucleated Red Blood Cells # 0.0 0.0 Prothrombin Time 11.5 L Prothrombin Time Ratio 0.9 INR International Normalized Ratio 0.83 Activated Partial Thromboplast Time 30.6 Sodium Level 145 H 145 H Potassium Level 4.0 4.5 Chloride Level 112 H 115 H Carbon Dioxide Level 19 L 19 L Anion Gap 14 H 11 Blood Urea Nitrogen 15 13 Creatinine 0.85 0.92 Est Glomerular Filtrat Rate mL/min > 60 > 60 Glucose Level 220 179 Calcium Level 8.4 7.8 L Total Bilirubin 0.2 0.2 Direct Bilirubin 0.00 0.00 Indirect Bilirubin 0.2 0.2 Aspartate Amino Transf (AST/SGOT) 38 29 Alanine Aminotransferase (ALT/SGPT) 44 44 Alkaline Phosphatase 76 59 Troponin I < 0.012 Total Protein 8.0 7.1 Albumin 4.3 3.6 Globulin 3.70 H 3.50 H Albumin/Globulin Ratio 1.16 1.02 Hemoglobin A1c 5.9 Magnesium Level 2.1 Triglycerides Level 516 H Cholesterol Level 170 LDL Cholesterol, Calculated 29 HDL Cholesterol 38 Cholesterol/HDL Ratio 4.4 Ethyl Alcohol Level 133.0 H HPI/ROS Admit Date/Time Admit Date/Time Hx of Present Illness Chief complaint: Abdominal pain, hematemesis This is a 43-year-old male with a past medical history of alcohol use who presents to the emergency department complaining of hematemesis x5 days. Patient reports he has had red and dark blood vomitus for the last 5 days. He does report that he is a alcohol drinker and daily. He reports 2-3 beers a day. He also reports that he is having abdominal pain and he has had a history of pancreatitis in the past. He denies any chest pain or diarrhea. Denies any bright red blood or dark stool per rectum. Allergies: NKDA Medications: See JARED COPPOLA Const: As per HPI Eyes : No pain discharge or redness or change in visual acuity ENT: No pain, sore throat, congestion, congestion, dysphagia or discharge Respiratory: No shortness of breath, cough, sputum, wheezing, or pleuritic pain Cardiovascular: No chest pain, palpitation, PND, or edema GI : As per HPI Genitourinary: No dysuria, hematuria, flank pain , discharge or CVA tenderness Musculoskeletal: No joint pain, back pain, neck pain, restricted range of motion in neck or joints Skin: No rash, bruising or hives Neuro: No headache, dizziness, syncope, seizure, focal weakness Endocrine: No polyuria, polydipsia, temperature intolerance Psych: No hallucination, depression, anxiety or suicidal ideation PMH/Family/Social Past Medical History Diabetes mellitus, hypertension Medications Current Medications Pantoprazole 80 mg/Sodium Chloride 100 ml @ 10 mls/hr ONCE STAT IV Last administered on 03/16/19at 00:08; Admin Dose 10 MLS/HR; Start 03/15/19 at 23:31; Stop 03/16/19 at 09:30 Octreotide Acetate 500 mcg/ Sodium Chloride 50 ml @ 5 mls/hr ONCE STAT IV Last administered on 03/16/19at 00:08; Admin Dose 5 MLS/HR; Start 03/15/19 at 23:31; Stop 03/16/19 at 09:30 Ondansetron HCl (Zofran Inj) 4 mg ER BRIDGE PRN IV NAUSEA/VOMITING; Start 03/16/19 at 04:00; Stop 03/17/19 at 03:59 Acetaminophen (Tylenol Tab) 650 mg ER BRIDGE PRN PO .MILD PAIN 1-3 OR TEMP; Start 03/16/19 at 04:00; Stop 03/17/19 at 03:59 IV Flush (NS 3 ml) 3 ml PER PROTOCOL IV ; Start 03/16/19 at 04:00 Ondansetron HCl (Zofran Inj) 4 mg Q6H PRN IV NAUSEA/VOMITING; Start 03/16/19 at 04:00 Acetaminophen (Tylenol Supp) 650 mg Q6H PRN [place] .PAIN 1-3 OR TEMP; Start 03/16/19 at 04:00 Morphine Sulfate (morphine) 2 mg Q4H PRN IV .PAIN 7-10; Start 03/16/19 at 04:00 Octreotide Acetate 1 mg/ Dextrose 100 ml @ 5 mls/hr Q20H IV ; Start 03/16/19 at 04:30 Pantoprazole 80 mg/Sodium Chloride 100 ml @ 10 mls/hr Q10H IV ; Start 03/16/19 at 04:30 Lorazepam (Ativan) 1 mg Q4H PRN IV CONTROL WITHDRAWAL SYMPTOMS; Start 03/16/19 at 04:30 Thiamine HCl (Vitamin B1) 200 mg DAILY IM ; Start 03/16/19 at 04:30; Stop 03/21/19 at 04:29 Coded Allergies: No Known Allergy (Unverified , 03/16/19) Past Surgical History Abdominal hernia repair Family History Significant Family History: no pertinent family hx Social History Alcohol Use: heavy Smoking Status: Never smoker Drug Use: none Exam/Review of Systems Vital Signs Vitals Vital Signs Date Temp Pulse Resp B/P (MAP) Pulse Ox O2 O2 Flow FiO2 Time Delivery Rate 03/16/19 76 16 97/74 (82) 100 Nasal 2.0 06:30 Cannula 03/15/19 98.2 21:07 Exam Exam General: Patient is currently lying in bed, he does appear to be in moderate distress from abdominal pain. HEENT: Atraumatic, normocephalic. The pupils are equal, round and reactive. Extraocular motor are intact Neck: Supple with full range of motion. No rigidity or meningismus Chest: Nontender Lungs: Clear to auscultation bilaterally no crackles rales or wheezing Heart: Normal S1-S2, Regular rhythm and rate. No murmur, S3, or S4 Abdomen: Distended abdomen, tender to palpation, normal bowel sounds. Surgical scar present Extremities: Normal to inspection, no edema no cyanosis Neurologic: Normal mental status, speech normal, cranial nerves II through XII are intact, motor and sensory are intact, Additional Comments PROCEDURE: CT Abdomen and Pelvis without contrast. CLINICAL INDICATION: Abdominal pain TECHNIQUE: CT scan of the abdomen and pelvis without contrast was performed on a multi-detector high-resolution CT scanner. Coronal and sagittal reformatted images obtained from the axial source images. Images were reviewed on a high- resolution PACS workstation. Exam CTDI 18.66 mGy Exam DLP 1230.64 mGy-cm DICOM images are available. One or more of the following dose reduction techniques were utilized: 1.) Automated exposure control 2.) Adjustment of the mA +/- kV according to patient's size 3.) Use of iterative reconstruction technique. COMPARISON: 02/26/2019, 02/23/2019 FINDINGS: CT abdomen: LOWER THORAX: Lung bases are clear. LIVER AND GALLBLADDER: Diminished attenuation throughout the liver consistent with diffuse steatosis. Gallbladder is unremarkable. SPLEEN: Normal. PANCREAS: Normal. ADRENAL GLANDS: Normal. KIDNEYS: Cortical scarring and punctate cortical calcification at the lower pole of the right kidney. There is trace bilateral perinephric fluid stranding. No hydronephrosis and no evidence of an obstructing stone in either ureter. VASCULATURE: Abdominal aorta is normal in caliber. LYMPH NODES: No significant retroperitoneal or mesenteric lymphadenopathy. BOWEL AND MESENTERY: There is hazy density in the central mesentery which is unchanged compared with previous imaging. Two linear metallic densities noted within the fundus of the stomach. The small bowel is unremarkable and there is no evidence for obstruction. The large bowel is unremarkable. CT pelvis: There is no free fluid in the pelvis. Urinary bladder is unremarkable. No significant pelvic lymphadenopathy. Bones: Vacuum changes and disc degeneration at L5-S1. Regional bones are otherwise unremarkable. IMPRESSION: 1. No clearly acute process within the abdomen or pelvis. 2. Hazy stranding in the central mesentery unchanged compared with previous imaging, consistent with chronic mesenteric panniculitis. 3. Two small linear metallic densities within the stomach also unchanged, recommend correlation with previous surgical history. 4. Punctate calcification and cortical scarring at the lower pole of the right kidney. 5. Fatty infiltrated liver. RPTAT: [facility] Physician Dena Date Time Electronically viewed and signed by Physician Dena on 03/16/2019 01:42 xB/ CC: DIANE AVILA [id number] PROCEDURE: XR Chest. CLINICAL INDICATION: Upper GI bleed. TECHNIQUE: Single frontal chest x-ray. COMPARISON: 02/26/2019 FINDINGS: The cardiomediastinal silhouette is unremarkable. There is no congestive heart failure.. No focal infiltrate is seen. There is no pleural effusion. There is no pneumothorax. The osseous structures are unremarkable. IMPRESSION: 1. No active disease. RPTAT: [facility] .Baldomero Javier MD, Date Time Electronically viewed and signed by .Baldomero Javier MD, on 03/16/2019 01:21 .K/ CC: DIANE AVILA [id number] MICHAEL PETER Mar 16, 2019 08:05
[2019-03-16] MEDS: THIAMINE 200 MG INJ IM SCH ×2 (08:23→09:00)
[2019-03-16] MEDS: OCTREOTIDE 1 MG in DEXTROSE 5% 95 ML IV SCH (08:23)
[2019-03-16] MEDS: LORAZEPAM 2 MG INJ IV PRN ×2 (08:27→22:25)
[2019-03-16] MEDS: morphine 2 MG INJ IV PRN ×5 (08:28→21:43)
[2019-03-16] MEDS ORDERED: GLUCOSE GEL 15 GRAM TUBE PO PRN ×2 (08:30)
[2019-03-16] MEDS ORDERED: DEXTROSE 50% 50 ML SYRINGE IV PRN ×2 (08:30)
[2019-03-16] MEDS ORDERED: GLUCAGON 1 MG INJ IM PRN (08:30)
[2019-03-16] MEDS ORDERED: GLUCOSE GEL 15 GRAM TUBE BUCCAL PRN (08:30)
[2019-03-16] MEDS ORDERED: IOHEXOL 300MG/ML 150 ML BTL ONE (09:12)
[2019-03-16] MEDS ORDERED: SOD CHLORIDE 0.9% 100 ML ONE (09:12)
[2019-03-16] MEDS: PANTOPRAZOLE IV 80 MG in SOD CHLORIDE 0.9% 100 ML IV SCH ×2 (09:41→16:50)
[2019-03-16] MEDS: INSULIN ASPART [NOVOLOG] 3 ML PEN SC SCH ×4 (09:46→20:51)
--- NOTE | 2019-03-16 10:10 | QN ---
Documentation Comment Observation Note: Time: 4 hours Family Hx: Negative for diabetes Evaluation: Multiple exams showed improving symptoms and no evidence of clinical decompensation. TRAVIS DUKE MD Mar 16, 2019 10:10
[2019-03-16] MEDS: FOLIC ACID 1 MG TAB PO SCH (10:57)
[2019-03-16] MEDS: MULTIVITAMINS THERAPEUTIC TAB PO SCH (10:57)
--- NOTE | 2019-03-16 13:32 | CONS ---
Assessment/Plan Assessment/Plan Hospital Course (Demo Recall) Summary Assessment and Plan: Assessment: Hematemesis/melena Rule out PUD versus EV versus hemorrhagic gastritis versus other Acute pancreatitis Hepatomegaly with fatty infiltration Hypertension Diabetes Alcohol abuse advised cessation -Pt with elevated blood alcohol level of 133.0 on 03/16/19 Plan: Recommend hyperhydration Monitor labs Continue PPI drip and octreotide drip Maintain strict n.p.o. EGD is scheduled for 03/17/19 Endoscopy - risks/benefits/alternatives/indications of procedure and sedation/anesthesia discussed with patient who states understanding and gives informed consent to proceed. Patient is seen in collaboration with Dr. Weaver CC: JULIA WEAVER MD ; Consultation Date/Type/Reason Admit Date/Time Date of Consultation: Mar 16, 2019 Type of Consult GI Reason for Consultation Hematemesis/melena Date/Time of Note DATE: 03/16/19 TIME: 13:28 Hx of Present Illness This is a 43-year-old male with past medical history of diabetes, hypertension, gastric ulcers with upper GI bleed status post EGD with what sounds like placement of resolution clip to stop GI bleed 4 years ago, alcohol abuse who drinks up to five 25 ounce beers per day for the past 6 months or so. Who presented to the hospital with complaints of abdominal pain and hematemesis x3 to 5 days with an episode of melena. With work-up in ED patient found to have normocytic anemia initially 13.8 rechecked this morning 12.3, INR 0.83, normal LFTs, platelet count is 249 today and there is elevation in lipase at 396. CT abdomen pelvis with contrast was obtained showing no evidence of urolithiasis, obstructive uropathy or diverticulitis. Nonvisualization appendix. Stranding fat with small volume fluid anterior to crossing duodenum, question duodenitis. No discrete collection. Postsurgical clips gastric clips from previous hernia repair per patient. Blood alcohol level was obtained noting to be 133.0 again patient notes increased drinking last night more than usual. Елена plan to continue current IV drips of octreotide and PPI recommend hyperhydration and plan for EGD tomorrow patient verbalized understanding is agreeable Past Medical History Home Meds Discontinued Reported Medications Metformin* (Glucophage*) 1,000 Mg Tablet, 1000 MG PO BID, #60 TAB 05/25/17 Medications Current Medications IV Flush (NS 3 ml) 3 ml PER PROTOCOL IV ; Start 03/16/19 at 04:00 Ondansetron HCl (Zofran Inj) 4 mg Q6H PRN IV NAUSEA/VOMITING; Start 03/16/19 at 04:00 Acetaminophen (Tylenol Supp) 650 mg Q6H PRN ND .PAIN 1-3 OR TEMP; Start 03/16/19 at 04:00 Morphine Sulfate (morphine) 2 mg Q4H PRN IV .PAIN 7-10 Last administered on 03/16/19at 08:28; Admin Dose 2 MG; Start 03/16/19 at 04:00 Octreotide Acetate 1 mg/ Dextrose 100 ml @ 5 mls/hr Q20H IV Last administered on 03/16/19at 08:23; Admin Dose 5 MLS/HR; Start 03/16/19 at 04:30 Pantoprazole 80 mg/Sodium Chloride 100 ml @ 10 mls/hr Q10H IV Last administered on 03/16/19at 09:41; Admin Dose 10 MLS/HR; Start 03/16/19 at 04:30 Lorazepam (Ativan) 1 mg Q4H PRN IV CONTROL WITHDRAWAL SYMPTOMS Last administered on 03/16/19at 08:27; Admin Dose 1 MG; Start 03/16/19 at 04:30 Thiamine HCl (Vitamin B1) 200 mg DAILY IM Last administered on 03/16/19at 08:23; Admin Dose 200 MG; Start 03/16/19 at 04:30; Stop 03/21/19 at 04:29 Diagnostic Test (Pha) (Accu-Chek) 1 ea 02 XX ; Start 03/17/19 at 02:00 Insulin Aspart (Novolog Insulin Pen) NOVOLOG *MILD* ALGORI... Q4 SC Last administered on 03/16/19at 09:46; Admin Dose 1 UNIT; Start 03/16/19 at 09:00 Miscellaneous Information 1 ea NOTE XX ; Start 03/16/19 at 08:30 Glucose (Glutose) 15 gm Q15M PRN PO DECREASED GLUCOSE; Start 03/16/19 at 08:30 Glucose (Glutose) 22.5 gm Q15M PRN PO DECREASED GLUCOSE; Start 03/16/19 at 08:30 Dextrose (D50w Syringe) 25 ml Q15M PRN IV DECREASED GLUCOSE; Start 03/16/19 at 08:30 Dextrose (D50w Syringe) 50 ml Q15M PRN IV DECREASED GLUCOSE; Start 03/16/19 at 0 8:30 Glucagon (Glucagen) 1 mg Q15M PRN IM DECREASED GLUCOSE; Start 03/16/19 at 08:30 Glucose (Glutose) 15 gm Q15M PRN BUCCAL DECREASED GLUCOSE; Start 03/16/19 at 08:30 Multivitamins Therapeutic (Theragran) 1 tab DAILY PO Last administered on 03/16/19at 10:57; Admin Dose 1 TAB; Start 03/16/19 at 09:00 Folic Acid (Folic Acid) 1 mg DAILY PO Last administered on 03/16/19at 10:57; Admin Dose 1 MG; Start 03/16/19 at 09:00 Allergies: Coded Allergies: No Known Allergy (Unverified , 03/16/19) Social History Alcohol Use: heavy Smoking Status: Never smoker Drug Use: none Exam/Review of Systems Exam Vitals Vital Signs Date Temp Pulse Resp B/P (MAP) Pulse Ox O2 O2 Flow FiO2 Time Delivery Rate 03/16/19 82 16 120/79 99 Nasal 2.0 12:00 (93) Cannula 03/15/19 98.2 21:07 Exam PHYSICAL EXAMINATION: GENERAL: Alert & oriented x 3, in no acute distress SKIN: No lesions HEAD: Normocephalic, atraumatic, no tenderness. EYES: Pupils equal reactive to light, no discharge. EARS/NOSE AND THROAT: Ears normal, nose normal. NECK: Supple, no masses. CHEST: Inspection within normal limits. CARDIOVASCULAR: Heart: Regular rate and rhythm RESPIRATORY: Lungs clear to auscultation GASTROINTESTINAL AND LIVER: Abdomen: Soft, generalized tenderness, -distended, no hernias, no masses, hepatomegaly, no ascites, no guarding, no rebound tenderness, normoactive bowel sounds. Rectal: Deferred. EXTREMITIES: No cyanosis, clubbing or edema. Results Result Diagram: 03/16/19 1051 03/16/19 0528 Results 24hrs Laboratory Tests Test 03/15/19 23:36 03/16/19 05:24 03/16/19 05:28 03/16/19 09:44 White Blood Count 5.3 4.2 #L Red Blood Count 4.33 L 3.94 L Hemoglobin 13.8 L 12.3 L Hematocrit 38.3 L 35.6 L Mean Corpuscular Volume 88.5 90.4 Mean Corpuscular 31.9 31.2 Hemoglobin Mean Corpuscular 36.0 34.6 Hemoglobin Concent Red Cell Distribution 13.0 13.2 Width Platelet Count 301 # 247 Mean Platelet Volume 9.0 9.0 Immature Granulocytes % 0.900 H 1.700 H Neutrophils % 51.9 40.9 Lymphocytes % 35.2 42.8 Monocytes % 10.2 12.5 H Eosinophils % 0.9 1.4 Basophils % 0.9 0.7 Nucleated Red Blood 0.0 0.0 Cells % Immature Granulocytes # 0.050 H 0.070 H Neutrophils # 2.8 1.7 Lymphocytes # 1.9 1.8 Monocytes # 0.5 0.5 Eosinophils # 0.1 0.1 Basophils # 0.1 0.0 Nucleated Red Blood 0.0 0.0 Cells # Prothrombin Time 11.5 L Prothrombin Time Ratio 0.9 INR International 0.83 Normalized Ratio Activated 30.6 Partial Thromboplast Time Sodium Level 145 H 145 H Potassium Level 4.0 4.5 Chloride Level 112 H 115 H Carbon Dioxide Level 19 L 19 L Anion Gap 14 H 11 Blood Urea Nitrogen 15 13 Creatinine 0.85 0.92 Est Glomerular Filtrat > 60 > 60 Rate mL/min Glucose Level 220 179 Calcium Level 8.4 7.8 L Total Bilirubin 0.2 0.2 Direct Bilirubin 0.00 0.00 Indirect Bilirubin 0.2 0.2 Aspartate Amino 38 29 Transf (AST/SGOT) Alanine 44 44 Aminotransferase (ALT/SG PT) Alkaline Phosphatase 76 59 Troponin I < 0.012 Total Protein 8.0 7.1 Albumin 4.3 3.6 Globulin 3.70 H 3.50 H Albumin/Globulin Ratio 1.16 1.02 Lipase 396 H Hemoglobin A1c 5.9 Magnesium Level 2.1 Triglycerides Level 516 H Cholesterol Level 170 LDL Cholesterol, 29 Calculated HDL Cholesterol 38 Cholesterol/HDL Ratio 4.4 Ethyl Alcohol Level 133.0 H Bedside Glucose 159 Test 03/16/19 10:51 White Blood Count 3.5 L Red Blood Count 3.98 L Hemoglobin 12.4 L Hematocrit 36.0 L Mean Corpuscular Volume 90.5 Mean Corpuscular 31.2 Hemoglobin Mean Corpuscular 34.4 Hemoglobin Concent Red Cell Distribution 13.3 Width Platelet Count 249 Mean Platelet Volume 9.2 Immature Granulocytes % 2.000 H Neutrophils % 49.9 Lymphocytes % 34.0 Monocytes % 11.9 H Eosinophils % 1.4 Basophils % 0.8 Nucleated Red Blood 0.0 Cells % Immature Granulocytes # 0.070 H Neutrophils # 1.8 Lymphocytes # 1.2 Monocytes # 0.4 Eosinophils # 0.1 Basophils # 0.0 Nucleated Red Blood 0.0 Cells # Medications Medication Current Medications IV Flush (NS 3 ml) 3 ml PER PROTOCOL IV ; Start 03/16/19 at 04:00 Ondansetron HCl (Zofran Inj) 4 mg Q6H PRN IV NAUSEA/VOMITING; Start 03/16/19 at 04:00 Acetaminophen (Tylenol Supp) 650 mg Q6H PRN ND .PAIN 1-3 OR TEMP; Start 03/16/19 at 04:00 Morphine Sulfate (morphine) 2 mg Q4H PRN IV .PAIN 7-10 Last administered on 03/16/19 08:28; Admin Dose 2 MG; Start 03/16/19 at 04:00 Octreotide Acetate 1 mg/ Dextrose 100 ml @ 5 mls/hr Q20H IV Last administered on 03/16/19 08:23; Admin Dose 5 MLS/HR; Start 03/16/19 at 04:30 Pantoprazole 80 mg/Sodium Chloride 100 ml @ 10 mls/hr Q10H IV Last administered on 03/16/19at 09:41; Admin Dose 10 MLS/HR; Start 03/16/19 at 04:30 Lorazepam (Ativan) 1 mg Q4H PRN IV CONTROL WITHDRAWAL SYMPTOMS Last administered on 03/16/19at 08:27; Admin Dose 1 MG; Start 03/16/19 at 04:30 Thiamine HCl (Vitamin B1) 200 mg DAILY IM Last administered on 03/16/19 08:23; Admin Dose 200 MG; Start 03/16/19 at 04:30; Stop 03/21/19 at 04:29 Diagnostic Test (Pha) (Accu-Chek) 1 ea 02 XX ; Start 03/17/19 at 02:00 Insulin Aspart (Novolog Insulin Pen) NOVOLOG *MILD* ALGORI... Q4 SC Last administered on 03/16/19at 09:46; Admin Dose 1 UNIT; Start 03/16/19 at 09:00 Miscellaneous Information 1 ea NOTE XX ; Start 03/16/19 at 08:30 Glucose (Glutose) 15 gm Q15M PRN PO DECREASED GLUCOSE; Start 03/16/19 at 08:30 Glucose (Glutose) 22.5 gm Q15M PRN PO DECREASED GLUCOSE; Start 03/16/19 at 08:30 Dextrose (D50w Syringe) 25 ml Q15M PRN IV DECREASED GLUCOSE; Start 03/16/19 at 08:30 Dextrose (D50w Syringe) 50 ml Q15M PRN IV DECREASED GLUCOSE; Start 03/16/19 at 08:30 Glucagon (Glucagen) 1 mg Q15M PRN IM DECREASED GLUCOSE; Start 03/16/19 at 08:30 Glucose (Glutose) 15 gm Q15M PRN BUCCAL DECREASED GLUCOSE; Start 03/16/19 at 08:30 Multivitamins Therapeutic (Theragran) 1 tab DAILY PO Last administered on 03/16/19at 10:57; Admin Dose 1 TAB; Start 03/16/19 at 09:00 Folic Acid (Folic Acid) 1 mg DAILY PO Last administered on 03/16/19at 10:57; Admin Dose 1 MG; Start 03/16/19 at 09:00 YAQUELIN PINK Mar 16, 2019 13:32
--- NOTE | 2019-03-16 15:21 | PN ---
Date/Time of Note Date/Time of Note DATE: 03/16/19 TIME: 15:18 Assessment/Plan VTE Prophylaxis SCD applied (from Nsg): Yes Pharmacological prophylaxis: NA/contraindicated Pharm contraindication: bleeding Lines/Catheters IV Catheter Type (from Nrsg): Saline Lock Assessment/Plan Hospital Course SUBJECTIVE: Continues to complain of abdominal pain. Denies any hematemesis. OBJECTIVE: Physical Exam General: Obese build 43 year-old male lying in bed in no apparent distress. HEENT: Normocephalic, atraumatic. Eyes: Anicteric sclerae, conjunctivae clear. ENT: Nasal septum midline, oral mucosa moist. Neck supple, no JVD noticed. Respiratory: Bilaterally clear breath sounds. No use of accessory muscles of respiration. No adventitious breath sounds. Cardiovascular: S1, S2 heard. Regular rate and rhythm. Abdomen: Soft and nondistended. Diffuse tenderness. Bowel sounds positive in all 4 quadrants. Genitourinary: Deferred. Extremities: No cyanosis, no clubbing, no edema. Peripheral pulses palpable. Neurologic: Cranial nerves II through XII grossly intact. The patient is awake, alert, and oriented. Skin: Normal skin turgor. No skin rashes. Labs & Vitals per chart ASSESSMENT & PLAN 43-year-old male with comorbidities including hypertension, diabetes mellitus type 2, and alcohol abuse who presented to the emergency department with chief complaint of abdominal pain and multiple episodes of coffee-ground emesis, who was admitted to inpatient setting for further treatment and evaluation. 1. Upper gastrointestinal bleeding. Continue PPI and octreotide. Gastroenterology has been consulted. Plan for esophagogastroduodenoscopy on 03/17/2019. 2. Abdominal pain. Etiology could be secondary to #1. CT abdomen and pelvis negative for any acute findings. Management as per gastroenterology. 3. Alcohol abuse. Continue multivitamins. Monitor for any DTs. 4. Diabetes mellitus. Continue the patient on sliding scale insulin. Hemoglobin A1c 5.9. 5. Hypertension. Continue antihypertensives. 6. Obesity. BMI more than 31 kg/m. Weight reduction will be advised. 7. Normocytic, normochromic anemia. Monitor H&H closely. 8. Fluids, electrolytes, and nutrition. N.p.o. except for medications. 9. DVT prophylaxis. Bilateral SCDs. 9. Plan. Continue octreotide and PPI. Await esophagogastroduodenoscopy scheduled on 03/17/2019. Monitor H&H closely. The patient was seen in collaboration with Dr. Herrera. Result Diagram: 03/16/19 1051 03/16/19 0528 Results 24hrs Laboratory Tests Test 03/15/19 23:36 03/16/19 05:24 03/16/19 05:28 03/16/19 09:44 White Blood Count 5.3 4.2 #L Red Blood Count 4.33 L 3.94 L Hemoglobin 13.8 L 12.3 L Hematocrit 38.3 L 35.6 L Mean Corpuscular Volume 88.5 90.4 Mean Corpuscular 31.9 31.2 Hemoglobin Mean Corpuscular 36.0 34.6 Hemoglobin Concent Red Cell Distribution 13.0 13.2 Width Platelet Count 301 # 247 Mean Platelet Volume 9.0 9.0 Immature Granulocytes % 0.900 H 1.700 H Neutrophils % 51.9 40.9 Lymphocytes % 35.2 42.8 Monocytes % 10.2 12.5 H Eosinophils % 0.9 1.4 Basophils % 0.9 0.7 Nucleated Red Blood 0.0 0.0 Cells % Immature Granulocytes # 0.050 H 0.070 H Neutrophils # 2.8 1.7 Lymphocytes # 1.9 1.8 Monocytes # 0.5 0.5 Eosinophils # 0.1 0.1 Basophils # 0.1 0.0 Nucleated Red Blood 0.0 0.0 Cells # Prothrombin Time 11.5 L Prothrombin Time Ratio 0.9 INR International 0.83 Normalized Ratio Activated 30.6 Partial Thromboplast Time Sodium Level 145 H 145 H Potassium Level 4.0 4.5 Chloride Level 112 H 115 H Carbon Dioxide Level 19 L 19 L Anion Gap 14 H 11 Blood Urea Nitrogen 15 13 Creatinine 0.85 0.92 Est Glomerular Filtrat > 60 > 60 Rate mL/min Glucose Level 220 179 Calcium Level 8.4 7.8 L Total Bilirubin 0.2 0.2 Direct Bilirubin 0.00 0.00 Indirect Bilirubin 0.2 0.2 Aspartate Amino 38 29 Transf (AST/SGOT) Alanine 44 44 Aminotransferase (ALT/SG PT) Alkaline Phosphatase 76 59 Troponin I < 0.012 Total Protein 8.0 7.1 Albumin 4.3 3.6 Globulin 3.70 H 3.50 H Albumin/Globulin Ratio 1.16 1.02 Lipase 396 H Hemoglobin A1c 5.9 Magnesium Level 2.1 Triglycerides Level 516 H Cholesterol Level 170 LDL Cholesterol, 29 Calculated HDL Cholesterol 38 Cholesterol/HDL Ratio 4.4 Ethyl Alcohol Level 133.0 H Bedside Glucose 159 Test 03/16/19 10:51 03/16/19 13:50 White Blood Count 3.5 L Red Blood Count 3.98 L Hemoglobin 12.4 L Hematocrit 36.0 L Mean Corpuscular Volume 90.5 Mean Corpuscular 31.2 Hemoglobin Mean Corpuscular 34.4 Hemoglobin Concent Red Cell Distribution 13.3 Width Platelet Count 249 Mean Platelet Volume 9.2 Immature Granulocytes % 2.000 H Neutrophils % 49.9 Lymphocytes % 34.0 Monocytes % 11.9 H Eosinophils % 1.4 Basophils % 0.8 Nucleated Red Blood 0.0 Cells % Immature Granulocytes # 0.070 H Neutrophils # 1.8 Lymphocytes # 1.2 Monocytes # 0.4 Eosinophils # 0.1 Basophils # 0.0 Nucleated Red Blood 0.0 Cells # Bedside Glucose 159 Exam/Review of Systems Exam Vitals Vital Signs Date Temp Pulse Resp B/P (MAP) Pulse Ox O2 O2 Flow FiO2 Time Delivery Rate 03/16/19 82 16 120/79 99 Nasal 2.0 12:00 (93) Cannula 03/15/19 98.2 21:07 Results Results 24hrs Laboratory Tests Test 03/15/19 23:36 03/16/19 05:24 03/16/19 05:28 03/16/19 09:44 White Blood Count 5.3 4.2 #L Red Blood Count 4.33 L 3.94 L Hemoglobin 13.8 L 12.3 L Hematocrit 38.3 L 35.6 L Mean Corpuscular Volume 88.5 90.4 Mean Corpuscular 31.9 31.2 Hemoglobin Mean Corpuscular 36.0 34.6 Hemoglobin Concent Red Cell Distribution 13.0 13.2 Width Platelet Count 301 # 247 Mean Platelet Volume 9.0 9.0 Immature Granulocytes % 0.900 H 1.700 H Neutrophils % 51.9 40.9 Lymphocytes % 35.2 42.8 Monocytes % 10.2 12.5 H Eosinophils % 0.9 1.4 Basophils % 0.9 0.7 Nucleated Red Blood 0.0 0.0 Cells % Immature Granulocytes # 0.050 H 0.070 H Neutrophils # 2.8 1.7 Lymphocytes # 1.9 1.8 Monocytes # 0.5 0.5 Eosinophils # 0.1 0.1 Basophils # 0.1 0.0 Nucleated Red Blood 0.0 0.0 Cells # Prothrombin Time 11.5 L Prothrombin Time Ratio 0.9 INR International 0.83 Normalized Ratio Activated 30.6 Partial Thromboplast Time Sodium Level 145 H 145 H Potassium Level 4.0 4.5 Chloride Level 112 H 115 H Carbon Dioxide Level 19 L 19 L Anion Gap 14 H 11 Blood Urea Nitrogen 15 13 Creatinine 0.85 0.92 Est Glomerular Filtrat > 60 > 60 Rate mL/min Glucose Level 220 179 Calcium Level 8.4 7.8 L Total Bilirubin 0.2 0.2 Direct Bilirubin 0.00 0.00 Indirect Bilirubin 0.2 0.2 Aspartate Amino 38 29 Transf (AST/SGOT) Alanine 44 44 Aminotransferase (ALT/SG PT) Alkaline Phosphatase 76 59 Troponin I < 0.012 Total Protein 8.0 7.1 Albumin 4.3 3.6 Globulin 3.70 H 3.50 H Albumin/Globulin Ratio 1.16 1.02 Lipase 396 H Hemoglobin A1c 5.9 Magnesium Level 2.1 Triglycerides Level 516 H Cholesterol Level 170 LDL Cholesterol, 29 Calculated HDL Cholesterol 38 Cholesterol/HDL Ratio 4.4 Ethyl Alcohol Level 133.0 H Bedside Glucose 159 Test 03/16/19 10:51 03/16/19 13:50 White Blood Count 3.5 L Red Blood Count 3.98 L Hemoglobin 12.4 L Hematocrit 36.0 L Mean Corpuscular Volume 90.5 Mean Corpuscular 31.2 Hemoglobin Mean Corpuscular 34.4 Hemoglobin Concent Red Cell Distribution 13.3 Width Platelet Count 249 Mean Platelet Volume 9.2 Immature Granulocytes % 2.000 H Neutrophils % 49.9 Lymphocytes % 34.0 Monocytes % 11.9 H Eosinophils % 1.4 Basophils % 0.8 Nucleated Red Blood 0.0 Cells % Immature Granulocytes # 0.070 H Neutrophils # 1.8 Lymphocytes # 1.2 Monocytes # 0.4 Eosinophils # 0.1 Basophils # 0.0 Nucleated Red Blood 0.0 Cells # Bedside Glucose 159 Medications Medication Current Medications IV Flush (NS 3 ml) 3 ml PER PROTOCOL IV ; Start 03/16/19 at 04:00 Ondansetron HCl (Zofran Inj) 4 mg Q6H PRN IV NAUSEA/VOMITING; Start 03/16/19 at 04:00 Acetaminophen (Tylenol Supp) 650 mg Q6H PRN MO .PAIN 1-3 OR TEMP; Start 03/16/19 at 04:00 Morphine Sulfate (morphine) 2 mg Q4H PRN IV .PAIN 7-10 Last administered on 03/16/19at 14:21; Admin Dose 2 MG; Start 03/16/19 at 04:00 Octreotide Acetate 1 mg/ Dextrose 100 ml @ 5 mls/hr Q20H IV Last administered on 03/16/19at 08:23; Admin Dose 5 MLS/HR; Start 03/16/19 at 04:30 Pantoprazole 80 mg/Sodium Chloride 100 ml @ 10 mls/hr Q10H IV Last administered on 03/16/19 09:41; Admin Dose 10 MLS/HR; Start 03/16/19 at 04:30 Lorazepam (Ativan) 1 mg Q4H PRN IV CONTROL WITHDRAWAL SYMPTOMS Last administered on 03/16/19 08:27; Admin Dose 1 MG; Start 03/16/19 at 04:30 Thiamine HCl (Vitamin B1) 200 mg DAILY IM Last administered on 03/16/19 08:23; Admin Dose 200 MG; Start 03/16/19 at 04:30; Stop 03/21/19 at 04:29 Diagnostic Test (Pha) (Accu-Chek) 1 ea 02 XX ; Start 03/17/19 at 02:00 Insulin Aspart (Novolog Insulin Pen) NOVOLOG *MILD* ALGORI... Q4 SC Last administered on 03/16/19at 13:58; Admin Dose 1 UNIT; Start 03/16/19 at 09:00 Miscellaneous Information 1 ea NOTE XX ; Start 03/16/19 at 08:30 Glucose (Glutose) 15 gm Q15M PRN PO DECREASED GLUCOSE; Start 03/16/19 at 08:30 Glucose (Glutose) 22.5 gm Q15M PRN PO DECREASED GLUCOSE; Start 03/16/19 at 08:30 Dextrose (D50w Syringe) 25 ml Q15M PRN IV DECREASED GLUCOSE; Start 03/16/19 at 08:30 Dextrose (D50w Syringe) 50 ml Q15M PRN IV DECREASED GLUCOSE; Start 03/16/19 at 08:30 Glucagon (Glucagen) 1 mg Q15M PRN IM DECREASED GLUCOSE; Start 03/16/19 at 08:30 Glucose (Glutose) 15 gm Q15M PRN BUCCAL DECREASED GLUCOSE; Start 03/16/19 at 08:30 Multivitamins Therapeutic (Theragran) 1 tab DAILY PO Last administered on 03/16/19at 10:57; Admin Dose 1 TAB; Start 03/16/19 at 09:00 Folic Acid (Folic Acid) 1 mg DAILY PO Last administered on 03/16/19at 10:57; Admin Dose 1 MG; Start 03/16/19 at 09:00 MANI VALENZUELA NP Mar 16, 2019 15:21
[2019-03-16 17:09] VITALS: BP 138/95; PULSE 81; RESP 18
[2019-03-16 18:30] VITALS: BP 138/95; PULSE 81; RESP 18
[2019-03-16 18:55] VITALS: Ht 172.7 cm; Wt 94.1 kg
[2019-03-16 19:16] VITALS: BP 137/84; PULSE 81; RESP 20
[2019-03-16] MEDS: SOD CHLORIDE 0.9% 1,000 ML IV SCH (22:25)
[2019-03-16 23:50] VITALS: BP 130/82; PULSE 78; RESP 18
[2019-03-17] VITALS (14 sets, daily range): BP systolic 125–153; BP diastolic 76–94; PULSE 66–76; RESP 16–24
[2019-03-17] MEDS: PANTOPRAZOLE IV 80 MG in SOD CHLORIDE 0.9% 100 ML IV SCH ×2 (00:20→13:47)
[2019-03-17] MEDS: OCTREOTIDE 1 MG in DEXTROSE 5% 95 ML IV SCH ×2 (00:21→21:55)
[2019-03-17] MEDS: INSULIN ASPART [NOVOLOG] 3 ML PEN SC SCH ×5 (00:22→17:00)
[2019-03-17] MEDS: morphine 2 MG INJ IV PRN ×6 (01:45→23:36)
[2019-03-17] MEDS ORDERED: ACCU-CHEK XX SCH (02:00)
[2019-03-17] MEDS: SOD CHLORIDE 0.9% 1,000 ML IV SCH ×2 (08:00→13:48)
[2019-03-17] MEDS: THIAMINE 200 MG INJ IM SCH (09:00)
--- NOTE | 2019-03-17 12:00 | PN ---
Date/Time of Note Date/Time of Note DATE: 03/17/19 TIME: 11:58 Assessment/Plan VTE Prophylaxis Risk score (from Ns)>0 risk: 1 SCD applied (from Ns): Yes Pharmacological prophylaxis: NA/contraindicated Pharm contraindication: bleeding Lines/Catheters IV [facility]ter Type (from [facility]): Peripheral IV Assessment/Plan Hospital Course SUBJECTIVE: Continues to complain of abdominal pain. Denies any hematemesis. OBJECTIVE: Physical Exam General: Obese build 43 year-old male lying in bed in no apparent distress. HEENT: Normocephalic, atraumatic. Eyes: Anicteric sclerae, conjunctivae clear. ENT: Nasal septum midline, oral mucosa moist. Neck supple, no JVD noticed. Respiratory: Bilaterally clear breath sounds. No use of accessory muscles of res piration. No adventitious breath sounds. Cardiovascular: S1, S2 heard. Regular rate and rhythm. Abdomen: Distended. Diffuse tenderness. Midline surgical scar. Genitourinary: Deferred. Extremities: No cyanosis, no clubbing, no edema. Peripheral pulses palpable. Neurologic: Cranial nerves II through XII grossly intact. The patient is awake, alert, and oriented. Skin: Normal skin turgor. No skin rashes. Labs & Vitals per chart ASSESSMENT & PLAN 43-year-old male with comorbidities including hypertension, diabetes mellitus type 2, and alcohol abuse who presented to the emergency department with chief complaint of abdominal pain and multiple episodes of coffee-ground emesis, who was admitted to inpatient setting for further treatment and evaluation. 1. Upper gastrointestinal bleeding. Continue PPI and octreotide. Gastroenterology has been consulted. Plan for esophagogastroduodenoscopy on 03/17/2019. 2. Abdominal pain. Etiology could be secondary to #1. CT abdomen and pelvis negative for any acute findings. Management as per gastroenterology. 3. Alcohol abuse. Continue multivitamins. Monitor for any DTs. 4. Diabetes mellitus. Continue the patient on sliding scale insulin. Hemoglobin A1c 5.9. 5. Hypertension. Continue antihypertensives. 6. Obesity. BMI more than 31 kg/m. Weight reduction will be advised. 7. Normocytic, normochromic anemia. Monitor H&H closely. 8. Fluids, electrolytes, and nutrition. N.p.o. except for medications. 9. DVT prophylaxis. Bilateral SCDs. 9. Plan. Continue octreotide and PPI. Await esophagogastroduodenoscopy scheduled on 03/17/2019. Monitor H&H closely. The patient was seen in collaboration with Dr. Herrera. Result Diagram: 03/17/19 1039 03/17/19 0523 Results 24hrs Laboratory Tests Test 03/16/19 13:50 03/16/19 16:55 03/16/19 17:42 03/16/19 20:48 Bedside Glucose 159 149 125 White Blood Count 5.9 # Red Blood Count 4.26 L Hemoglobin 13.2 L Hematocrit 38.2 L Mean Corpuscular 89.7 Volume Mean Corpuscular 31.0 Hemoglobin Mean Corpuscular 34.6 Hemoglobin Concent Red Cell 13.2 Distribution Width Platelet Count 277 Mean Platelet Volume 9.1 Immature 1.000 H Granulocytes % Neutrophils % 64.4 Lymphocytes % 23.4 Monocytes % 9.2 Eosinophils % 1.2 Basophils % 0.8 Nucleated Red Blood 0.0 Cells % Immature 0.060 H Granulocytes # Neutrophils # 3.8 Lymphocytes # 1.4 Monocytes # 0.5 Eosinophils # 0.1 Basophils # 0.1 Nucleated Red Blood 0.0 Cells # Test 03/16/19 22:33 03/17/19 00:21 03/17/19 05:00 03/17/19 05:23 White Blood Count 5.6 4.8 Red Blood Count 4.35 L 4.27 L Hemoglobin 13.5 L 13.4 L Hematocrit 39.2 L 38.4 L Mean Corpuscular 90.1 89.9 Volume Mean Corpuscular 31.0 31.4 Hemoglobin Mean Corpuscular 34.4 34.9 Hemoglobin Concent Red Cell 13.2 13.1 Distribution Width Platelet Count 253 261 Mean Platelet Volume 8.8 9.0 Immature 0.900 H 0.800 H Granulocytes % Neutrophils % 64.1 59.6 Lymphocytes % 25.0 28.2 Monocytes % 8.4 9.1 Eosinophils % 1.1 1.7 Basophils % 0.5 0.6 Nucleated Red Blood 0.0 0.0 Cells % Immature 0.050 H 0.040 H Granulocytes # Neutrophils # 3.6 2.8 Lymphocytes # 1.4 1.3 Monocytes # 0.5 0.4 Eosinophils # 0.1 0.1 Basophils # 0.0 0.0 Nucleated Red Blood 0.0 0.0 Cells # Bedside Glucose 142 157 Sodium Level 142 Potassium Level 3.9 Chloride Level 109 Carbon Dioxide Level 27 Anion Gap 6 Blood Urea Nitrogen 11 Creatinine 0.95 Est Glomerular > 60 Filtrat Rate mL/min Glucose Level 149 Calcium Level 8.6 Total Bilirubin 0.7 Direct Bilirubin 0.00 Indirect Bilirubin 0.7 Aspartate Amino 30 Transf (AST/SGOT) Alanine 42 Aminotransferase (AL T/SGPT) Alkaline Phosphatase 86 Total Protein 7.4 Albumin 3.8 Globulin 3.60 H Albumin/Globulin 1.05 Ratio Amylase Level 57 Lipase 58 Test 03/17/19 05:24 03/17/19 07:45 03/17/19 09:45 03/17/19 10:39 Phosphorus Level 3.1 Magnesium Level 1.9 Bedside Glucose 144 Urine Opiates Screen Positive Urine Barbiturates Negative Urine Amphetamines Negative Screen Urine Negative Benzodiazepines Screen Urine Cocaine Screen Negative Urine Cannabinoids Negative White Blood Count 4.4 L Red Blood Count 4.14 L Hemoglobin 12.9 L Hematocrit 37.2 L Mean Corpuscular 89.9 Volume Mean Corpuscular 31.2 Hemoglobin Mean Corpuscular 34.7 Hemoglobin Concent Red Cell 13.0 Distribution Width Platelet Count 240 Mean Platelet Volume 8.9 Immature 0.700 H Granulocytes % Neutrophils % 60.1 Lymphocytes % 27.2 Monocytes % 9.3 Eosinophils % 2.0 Basophils % 0.7 Nucleated Red Blood 0.0 Cells % Immature 0.030 Granulocytes # Neutrophils # 2.7 Lymphocytes # 1.2 Monocytes # 0.4 Eosinophils # 0.1 Basophils # 0.0 Nucleated Red Blood 0.0 Cells # Test 03/17/19 11:20 Bedside Glucose 154 Exam/Review of Systems Exam Vitals Vital Signs Date Temp Pulse Resp B/P (MAP) Pulse Ox O2 O2 Flow FiO2 Time Delivery Rate 03/17/19 98.2 71 18 137/81 97 Room Air 11:17 (99) 03/16/19 2.0 14:00 Intake and Output 03/16/19 03/16/19 03/17/19 1515:00 23:00 07:00 IntakeIntake Total 0 ml 920 ml BalanceBalance 0 ml 920 ml Results Results 24hrs Laboratory Tests Test 03/16/19 13:50 03/16/19 16:55 03/16/19 17:42 03/16/19 20:48 Bedside Glucose 159 149 125 White Blood Count 5.9 # Red Blood Count 4.26 L Hemoglobin 13.2 L Hematocrit 38.2 L Mean Corpuscular 89.7 Volume Mean Corpuscular 31.0 Hemoglobin Mean Corpuscular 34.6 Hemoglobin Concent Red Cell 13.2 Distribution Width Platelet Count 277 Mean Platelet Volume 9.1 Immature 1.000 H Granulocytes % Neutrophils % 64.4 Lymphocytes % 23.4 Monocytes % 9.2 Eosinophils % 1.2 Basophils % 0.8 Nucleated Red Blood 0.0 Cells % Immature 0.060 H Granulocytes # Neutrophils # 3.8 Lymphocytes # 1.4 Monocytes # 0.5 Eosinophils # 0.1 Basophils # 0.1 Nucleated Red Blood 0.0 Cells # Test 03/16/19 22:33 03/17/19 00:21 03/17/19 05:00 03/17/19 05:23 White Blood Count 5.6 4.8 Red Blood Count 4.35 L 4.27 L Hemoglobin 13.5 L 13.4 L Hematocrit 39.2 L 38.4 L Mean Corpuscular 90.1 89.9 Volume Mean Corpuscular 31.0 31.4 Hemoglobin Mean Corpuscular 34.4 34.9 Hemoglobin Concent Red Cell 13.2 13.1 Distribution Width Platelet Count 253 261 Mean Platelet Volume 8.8 9.0 Immature 0.900 H 0.800 H Granulocytes % Neutrophils % 64.1 59.6 Lymphocytes % 25.0 28.2 Monocytes % 8.4 9.1 Eosinophils % 1.1 1.7 Basophils % 0.5 0.6 Nucleated Red Blood 0.0 0.0 Cells % Immature 0.050 H 0.040 H Granulocytes # Neutrophils # 3.6 2.8 Lymphocytes # 1.4 1.3 Monocytes # 0.5 0.4 Eosinophils # 0.1 0.1 Basophils # 0.0 0.0 Nucleated Red Blood 0.0 0.0 Cells # Bedside Glucose 142 157 Sodium Level 142 Potassium Level 3.9 Chloride Level 109 Carbon Dioxide Level 27 Anion Gap 6 Blood Urea Nitrogen 11 Creatinine 0.95 Est Glomerular > 60 Filtrat Rate mL/min Glucose Level 149 Calcium Level 8.6 Total Bilirubin 0.7 Direct Bilirubin 0.00 Indirect Bilirubin 0.7 Aspartate Amino 30 Transf (AST/SGOT) Alanine 42 Aminotransferase (AL T/SGPT) Alkaline Phosphatase 86 Total Protein 7.4 Albumin 3.8 Globulin 3.60 H Albumin/Globulin 1.05 Ratio Amylase Level 57 Lipase 58 Test 03/17/19 05:24 03/17/19 07:45 03/17/19 09:45 03/17/19 10:39 Phosphorus Level 3.1 Magnesium Level 1.9 Bedside Glucose 144 Urine Opiates Screen Positive Urine Barbiturates Negative Urine Amphetamines Negative Screen Urine Negative Benzodiazepines Screen Urine Cocaine Screen Negative Urine Cannabinoids Negative White Blood Count 4.4 L Red Blood Count 4.14 L Hemoglobin 12.9 L Hematocrit 37.2 L Mean Corpuscular 89.9 Volume Mean Corpuscular 31.2 Hemoglobin Mean Corpuscular 34.7 Hemoglobin Concent Red Cell 13.0 Distribution Width Platelet Count 240 Mean Platelet Volume 8.9 Immature 0.700 H Granulocytes % Neutrophils % 60.1 Lymphocytes % 27.2 Monocytes % 9.3 Eosinophils % 2.0 Basophils % 0.7 Nucleated Red Blood 0.0 Cells % Immature 0.030 Granulocytes # Neutrophils # 2.7 Lymphocytes # 1.2 Monocytes # 0.4 Eosinophils # 0.1 Basophils # 0.0 Nucleated Red Blood 0.0 Cells # Test 03/17/19 11:20 Bedside Glucose 154 Medications Medication Current Medications IV Flush (NS 3 ml) 3 ml PER PROTOCOL IV ; Start 03/16/19 at 04:00 Ondansetron HCl (Zofran Inj) 4 mg Q6H PRN IV NAUSEA/VOMITING; Start 03/16/19 at 04:00 Acetaminophen (Tylenol Supp) 650 mg Q6H PRN [place] .PAIN 1-3 OR TEMP; Start 03/16/19 at 04:00 Morphine Sulfate (morphine) 2 mg Q4H PRN IV .PAIN 7-10 Last administered on 03/17/19at 09:35; Admin Dose 2 MG; Start 03/16/19 at 04:00 Octreotide Acetate 1 mg/ Dextrose 100 ml @ 5 mls/hr Q20H IV Last administered on 03/17/19at 00:21; Admin Dose 5 MLS/HR; Start 03/16/19 at 04:30 Pantoprazole 80 mg/Sodium Chloride 100 ml @ 10 mls/hr Q10H IV Last administered on 03/17/19at 00:20; Admin Dose 10 MLS/HR; Start 03/16/19 at 04:30 Lorazepam (Ativan) 1 mg Q4H PRN IV CONTROL WITHDRAWAL SYMPTOMS Last administered on 03/16/19 22:25; Admin Dose 1 MG; Start 03/16/19 at 04:30 Thiamine HCl (Vitamin B1) 200 mg DAILY IM Last administered on 03/16/19at 08:23; Admin Dose 200 MG; Start 03/16/19 at 04:30; Stop 03/21/19 at 04:29 Diagnostic Test (Pha) (Accu-Chek) 1 ea 02 XX ; Start 03/17/19 at 02:00 Insulin Aspart (Novolog Insulin Pen) NOVOLOG *MILD* ALGORI... Q4 SC Last administered on 03/16/19at 13:58; Admin Dose 1 UNIT; Start 03/16/19 at 09:00 Miscellaneous Information 1 ea NOTE XX ; Start 03/16/19 at 08:30 Glucose (Glutose) 15 gm Q15M PRN PO DECREASED GLUCOSE; Start 03/16/19 at 08:30 Glucose (Glutose) 22.5 gm Q15M PRN PO DECREASED GLUCOSE; Start 03/16/19 at 08:30 Dextrose (D50w Syringe) 25 ml Q15M PRN IV DECREASED GLUCOSE; Start 03/16/19 at 08:30 Dextrose (D50w Syringe) 50 ml Q15M PRN IV DECREASED GLUCOSE; Start 03/16/19 at 08:30 Glucagon (Glucagen) 1 mg Q15M PRN IM DECREASED GLUCOSE; Start 03/16/19 at 08:30 Glucose (Glutose) 15 gm Q15M PRN BUCCAL DECREASED GLUCOSE; Start 03/16/19 at 08:30 Multivitamins Therapeutic (Theragran) 1 tab DAILY PO Last administered on 03/16/19at 10:57; Admin Dose 1 TAB; Start 03/16/19 at 09:00 Folic Acid (Folic Acid) 1 mg DAILY PO Last administered on 03/16/19 10:57; Admin Dose 1 MG; Start 03/16/19 at 09:00 Sodium Chloride 1,000 ml @ 100 mls/hr Q10H IV Last administered on 03/16/19 22:25; Admin Dose 100 MLS/HR; Start 03/16/19 at 22:00 MANI VALENZUELA NP Mar 17, 2019 12:00
[2019-03-17] MEDS: FOLIC ACID 1 MG TAB PO SCH (13:41)
[2019-03-17] MEDS: MULTIVITAMINS THERAPEUTIC TAB PO SCH (13:42)
[2019-03-17] MEDS: LORAZEPAM 2 MG INJ IV PRN ×2 (16:53→21:59)
--- NOTE | 2019-03-17 18:20 | PREAC ---
Date/Time of Note Date/Time of Note DATE: 03/17/19 TIME: 18:20 Anesthesia Eval and Record Evaluation Time Pre-Procedure Interview DATE: 03/17/19 TIME: 18:20 Age 43 Sex male NPO: 8 hrs Preoperative diagnosis GI Bleed Planned procedure EGD Past Medical History Past Medical History: Includes Cardio: HTN, Dyslipidemia Endo: Diabetes GI: Morbid obesity Surgery & Anesthesia Issues No known issue Meds Anticoagulation: No Beta Jacey within 24 hr: No Reason Beta Jacey not given: Pt. not on B-Jacey Discontinued Reported Medications Metformin* (Glucophage*) 1,000 Mg Tablet, 1000 MG PO BID, #60 TAB 05/25/17 Current Medications IV Flush (NS 3 ml) 3 ml PER PROTOCOL IV ; Start 03/16/19 at 04:00 Ondansetron HCl (Zofran Inj) 4 mg Q6H PRN IV NAUSEA/VOMITING; Start 03/16/19 at 04:00 Acetaminophen (Tylenol Supp) 650 mg Q6H PRN [place] .PAIN 1-3 OR TEMP; Start 03/16/19 at 04:00 Morphine Sulfate (morphine) 2 mg Q4H PRN IV .PAIN 7-10 Last administered on 03/17/19at 13:41; Admin Dose 2 MG; Start 03/16/19 at 04:00 Octreotide Acetate 1 mg/ Dextrose 100 ml @ 5 mls/hr Q20H IV Last administered on 03/17/19at 00:21; Admin Dose 5 MLS/HR; Start 03/16/19 at 04:30 Pantoprazole 80 mg/Sodium Chloride 100 ml @ 10 mls/hr Q10H IV Last administered on 03/17/19at 13:47; Admin Dose 10 MLS/HR; Start 03/16/19 at 04:30 Lorazepam (Ativan) 1 mg Q4H PRN IV CONTROL WITHDRAWAL SYMPTOMS Last ad ministered on 03/17/19at 16:53; Admin Dose 1 MG; Start 03/16/19 at 04:30 Thiamine HCl (Vitamin B1) 200 mg DAILY IM Last administered on 03/16/19at 08:23; Admin Dose 200 MG; Start 03/16/19 at 04:30; Stop 03/21/19 at 04:29 Diagnostic Test (Pha) (Accu-Chek) 1 ea 02 XX ; Start 03/17/19 at 02:00 Insulin Aspart (Novolog Insulin Pen) NOVOLOG *MILD* ALGORI... Q4 SC Last administered on 03/16/19at 13:58; Admin Dose 1 UNIT; Start 03/16/19 at 09:00 Miscellaneous Information 1 ea NOTE XX ; Start 03/16/19 at 08:30 Glucose (Glutose) 15 gm Q15M PRN PO DECREASED GLUCOSE; Start 03/16/19 at 08:30 Glucose (Glutose) 22.5 gm Q15M PRN PO DECREASED GLUCOSE; Start 03/16/19 at 08:30 Dextrose (D50w Syringe) 25 ml Q15M PRN IV DECREASED GLUCOSE; Start 03/16/19 at 08:30 Dextrose (D50w Syringe) 50 ml Q15M PRN IV DECREASED GLUCOSE; Start 03/16/19 at 08:30 Glucagon (Glucagen) 1 mg Q15M PRN IM DECREASED GLUCOSE; Start 03/16/19 at 08:30 Glucose (Glutose) 15 gm Q15M PRN BUCCAL DECREASED GLUCOSE; Start 03/16/19 at 08:30 Multivitamins Therapeutic (Theragran) 1 tab DAILY PO Last administered on 03/17/19at 13:42; Admin Dose 1 TAB; Start 03/16/19 at 09:00 Folic Acid (Folic Acid) 1 mg DAILY PO Last administered on 03/17/19at 13:41; Admin Dose 1 MG; Start 03/16/19 at 09:00 Sodium Chloride 1,000 ml @ 100 mls/hr Q10H IV Last administered on 03/17/19at 13:48; Admin Dose 100 MLS/HR; Start 03/16/19 at 22:00 Meds reviewed: Yes Allergies Coded Allergies: No Known Allergy (Unverified , 03/16/19) Allergies Reviewed: Yes Labs/Studies Labs Reviewed: Reviewed by anesthesiologist Result Diagram: 03/17/19 1039 03/17/19 0523 Laboratory Tests 03/17/19 05:23 03/17/19 10:39 test: N/A Pre-procedure Exam Last vitals Vital Signs Date Temp Pulse Resp B/P (MAP) Pulse Ox O2 O2 Flow FiO2 Time Delivery Rate 03/17/19 98.4 68 18 142/83 95 Room Air 15:11 (102) 03/16/19 2.0 14:00 Airway: Adequate mouth opening, Adequate thyromental dist Mallampati: Mallampati II Teeth: Normal Lung: Normal Heart: Normal ASA Physical Status ASA physical status: 3 Emergency: None Planned Anesthetic General/MAC: Mask, MAC Pre-operative Attestations Prior to commencing anesthesia and surgery, the patient was re-evaluated, there was verification of: *The patient's identity *The results of appropriate recent lab work and preoperative vital signs *The above evaluation not changing prior to induction *Anesthetic plan, risk benefits, alternative and complications discussed with patient/family; questions answered; patient/family understands, accepts and wishes to proceed. IPNO ALDANA Mar 17, 2019 18:20
[2019-03-17] MEDS ORDERED: PROPOFOL 40 ML ONE (18:25)
[2019-03-17] MEDS ORDERED: LIDOCAINE 100 MG SYRINGE ONE (18:25)
[2019-03-18 00:17] VITALS: BP 132/81; PULSE 71; RESP 20
[2019-03-18] MEDS: Insulin NOVOLOG SS MILD Algorithm (SS with meals and bedtime) SC SCH ×5 (02:30→20:21)
[2019-03-18] MEDS: SOD CHLORIDE 0.9% 1,000 ML IV SCH ×2 (02:50→03:50)
[2019-03-18] MEDS: PANTOPRAZOLE IV 80 MG in SOD CHLORIDE 0.9% 100 ML IV SCH ×3 (02:50→16:44)
[2019-03-18] MEDS: morphine 2 MG INJ IV PRN ×5 (03:35→20:13)
[2019-03-18 04:00] VITALS: BP 137/87; PULSE 66; RESP 18
[2019-03-18] MEDS ORDERED: INSULIN ASPART [NOVOLOG] 3 ML PEN SC SCH (07:00)
[2019-03-18] MEDS ORDERED: Insulin NOVOLOG SS MILD Algorithm (SS with meals and bedtime) SC SCH (07:00)
[2019-03-18 07:26] VITALS: BP 141/75; PULSE 72; RESP 20
--- NOTE | 2019-03-18 07:58 | PAC ---
Date/Time of Note Date/Time of Note DATE: 03/18/19 TIME: 07:58 Post-Anesthesia Notes Post-Anesthesia Note Last documented vital signs Vital Signs Date Temp Pulse Resp B/P (MAP) Pulse Ox O2 O2 Flow FiO2 Time Delivery Rate 03/18/19 98.0 72 20 141/75 97 Room Air 07:26 (97) 03/16/19 2.0 14:00 Activity: WNL Respiratory function: WNL Cardiovascular function: WNL Mental status: Baseline Pain reasonably controlled: Yes Hydration appropriate: Yes Nausea/Vomiting absent: Yes PINO ALDANA Mar 18, 2019 07:58
[2019-03-18] MEDS: MULTIVITAMINS THERAPEUTIC TAB PO SCH (08:02)
[2019-03-18] MEDS: FOLIC ACID 1 MG TAB PO SCH (08:02)
[2019-03-18] MEDS: THIAMINE 200 MG INJ IM SCH (08:03)
--- NOTE | 2019-03-18 10:26 | PN ---
Date/Time of Note Date/Time of Note DATE: 03/18/19 TIME: 10:22 Assessment/Plan VTE Prophylaxis Risk score (from Ns)>0 risk: 1 SCD applied (from Ns): No SCD contraindicated: other Pharmacological prophylaxis: NA/contraindicated Pharm contraindication: bleeding Lines/Catheters IV [facility]from [facility] Peripheral IV Assessment/Plan Hospital Course SUBJECTIVE: Continues to complain of abdominal pain. Denies any hematemesis. OBJECTIVE: Physical Exam General: Obese build 43 year-old male lying in bed in no apparent distress. HEENT: Normocephalic, atraumatic. Eyes: Anicteric sclerae, conjunctivae clear. ENT: Nasal septum midline, oral mucosa moist. Neck supple, no JVD noticed. Respiratory: Bilaterally clear breath sounds. No use of accessory muscles of respiration. No adventitious breath sounds. Cardiovascular: S1, S2 heard. Regular rate and rhythm. Abdomen: Distended. Diffuse tenderness. Midline surgical scar. Genitourinary: Deferred. Extremities: No cyanosis, no clubbing, no edema. Peripheral pulses palpable. Neurologic: Cranial nerves II through XII grossly intact. The patient is awake, alert, and oriented. Skin: Normal skin turgor. No skin rashes. Labs & Vitals per chart ASSESSMENT & PLAN 43-year-old male with comorbidities including hypertension, diabetes mellitus type 2, and alcohol abuse who presented to the emergency department with chief complaint of abdominal pain and multiple episodes of coffee-ground emesis, who was admitted to inpatient setting for further treatment and evaluation. 1. Upper gastrointestinal bleeding. Status post esophagogastroduodenoscopy on 03/17/2019 that showed severe erosive gastritis. Continue IV Protonix until 1900 on 03/18/2019 as per gastroenterology. Discontinue octreotide since there is no evidence of any esophageal varices. 2. Abdominal pain. Etiology could be secondary to #1. CT abdomen and pelvis negative for any acute findings. Management as per #1. 3. Alcohol abuse. Continue multivitamins. Monitor for any DTs. 4. Diabetes mellitus. Continue the patient on sliding scale insulin. Hemoglobin A1c 5.9. 5. Hypertension. Continue antihypertensives. 6. Moderate hypertriglyceridemia. Start therapy to prevent acute pancreatitis, specifically since the patient has prior history of pancreatitis. 7. Obesity. BMI more than 31 kg/m. Weight reduction will be advised. 8. Normocytic, normochromic anemia. Probably anemia of acute blood loss. Monitor H&H closely. 9. Fluids, electrolytes, and nutrition. Carbohydrate controlled diet. 10. DVT prophylaxis. Bilateral SCDs. 11. Plan. Discontinue octreotide. Continue PPI drip. Monitor H&H closely. Replete magnesium. Transfer the patient to medical floor. Discharge disposition is to home after finishing Protonix drip. The patient was seen in collaboration with Dr. Herrera. Result Diagram: 03/17/19 1039 03/18/19 0515 Results 24hrs Laboratory Tests Test 03/17/19 10:39 03/17/19 11:20 03/17/19 17:29 03/17/19 21:45 White Blood Count 4.4 L Red Blood Count 4.14 L Hemoglobin 12.9 L Hematocrit 37.2 L Mean Corpuscular 89.9 Volume Mean Corpuscular 31.2 Hemoglobin Mean Corpuscular 34.7 Hemoglobin Concent Red Cell 13.0 Distribution Width Platelet Count 240 Mean Platelet Volume 8.9 Immature 0.700 H Granulocytes % Neutrophils % 60.1 Lymphocytes % 27.2 Monocytes % 9.3 Eosinophils % 2.0 Basophils % 0.7 Nucleated Red Blood 0.0 Cells % Immature 0.030 Granulocytes # Neutrophils # 2.7 Lymphocytes # 1.2 Monocytes # 0.4 Eosinophils # 0.1 Basophils # 0.0 Nucleated Red Blood 0.0 Cells # Bedside Glucose 154 131 216 Test 03/18/19 03:04 03/18/19 05:15 03/18/19 07:38 Bedside Glucose 139 146 Sodium Level 140 Potassium Level 3.5 Chloride Level 107 Carbon Dioxide Level 25 Anion Gap 8 Blood Urea Nitrogen 14 Creatinine 0.96 Est Glomerular > 60 Filtrat Rate mL/min Glucose Level 137 Calcium Level 8.3 L Phosphorus Level 3.6 Magnesium Level 1.6 L Total Bilirubin 0.4 Direct Bilirubin 0.00 Indirect Bilirubin 0.4 Aspartate Amino 24 Transf (AST/SGOT) Alanine 36 Aminotransferase (AL T/SGPT) Alkaline Phosphatase 78 Total Protein 7.1 Albumin 3.7 Globulin 3.40 H Albumin/Globulin 1.08 Ratio Exam/Review of Systems Exam Vitals Vital Signs Date Temp Pulse Resp B/P (MAP) Pulse Ox O2 O2 Flow FiO2 Time Delivery Rate 03/18/19 98.0 72 20 141/75 97 Room Air 07:26 (97) 03/16/19 2.0 14:00 Intake and Output 03/17/19 03/17/19 03/18/19 1515:00 23:00 07:00 IntakeIntake Total 50 ml 2000 ml BalanceBalance 50 ml 2000 ml Results Results 24hrs Laboratory Tests Test 03/17/19 10:39 03/17/19 11:20 03/17/19 17:29 03/17/19 21:45 White Blood Count 4.4 L Red Blood Count 4.14 L Hemoglobin 12.9 L Hematocrit 37.2 L Mean Corpuscular 89.9 Volume Mean Corpuscular 31.2 Hemoglobin Mean Corpuscular 34.7 Hemoglobin Concent Red Cell 13.0 Distribution Width Platelet Count 240 Mean Platelet Volume 8.9 Immature 0.700 H Granulocytes % Neutrophils % 60.1 Lymphocytes % 27.2 Monocytes % 9.3 Eosinophils % 2.0 Basophils % 0.7 Nucleated Red Blood 0.0 Cells % Immature 0.030 Granulocytes # Neutrophils # 2.7 Lymphocytes # 1.2 Monocytes # 0.4 Eosinophils # 0.1 Basophils # 0.0 Nucleated Red Blood 0.0 Cells # Bedside Glucose 154 131 216 Test 03/18/19 03:04 03/18/19 05:15 03/18/19 07:38 Bedside Glucose 139 146 Sodium Level 140 Potassium Level 3.5 Chloride Level 107 Carbon Dioxide Level 25 Anion Gap 8 Blood Urea Nitrogen 14 Creatinine 0.96 Est Glomerular > 60 Filtrat Rate mL/min Glucose Level 137 Calcium Level 8.3 L Phosphorus Level 3.6 Magnesium Level 1.6 L Total Bilirubin 0.4 Direct Bilirubin 0.00 Indirect Bilirubin 0.4 Aspartate Amino 24 Transf (AST/SGOT) Alanine 36 Aminotransferase (AL T/SGPT) Alkaline Phosphatase 78 Total Protein 7.1 Albumin 3.7 Globulin 3.40 H Albumin/Globulin 1.08 Ratio Medications Medication Current Medications IV Flush (NS 3 ml) 3 ml PER PROTOCOL IV ; Start 03/16/19 at 04:00 Ondansetron HCl (Zofran Inj) 4 mg Q6H PRN IV NAUSEA/VOMITING; Start 03/16/19 at 04:00 Acetaminophen (Tylenol Supp) 650 mg Q6H PRN [place] .PAIN 1-3 OR TEMP; Start 03/16/19 at 04:00 Morphine Sulfate (morphine) 2 mg Q4H PRN IV .PAIN 7-10 Last administered on 03/18/19at 08:03; Admin Dose 2 MG; Start 03/16/19 at 04:00 Octreotide Acetate 1 mg/ Dextrose 100 ml @ 5 mls/hr Q20H IV Last administered on 03/17/19at 21:55; Admin Dose 5 MLS/HR; Start 03/16/19 at 04:30 Pantoprazole 80 mg/Sodium Chloride 100 ml @ 10 mls/hr Q10H IV Last administered on 03/18/19at 02:50; Admin Dose 10 MLS/HR; Start 03/16/19 at 04:30 Lorazepam (Ativan) 1 mg Q4H PRN IV CONTROL WITHDRAWAL SYMPTOMS Last administered on 03/17/19at 21:59; Admin Dose 1 MG; Start 03/16/19 at 04:30 Thiamine HCl (Vitamin B1) 200 mg DAILY IM Last administered on 03/16/19at 08:23; Admin Dose 200 MG; Start 03/16/19 at 04:30; Stop 03/21/19 at 04:29 Miscellaneous Information 1 ea NOTE XX ; Start 03/16/19 at 08:30 Glucose (Glutose) 15 gm Q15M PRN PO DECREASED GLUCOSE; Start 03/16/19 at 08:30 Glucose (Glutose) 22.5 gm Q15M PRN PO DECREASED GLUCOSE; Start 03/16/19 at 08:30 Dextrose (D50w Syringe) 25 ml Q15M PRN IV DECREASED GLUCOSE; Start 03/16/19 at 08:30 Dextrose (D50w Syringe) 50 ml Q15M PRN IV DECREASED GLUCOSE; Start 03/16/19 at 08:30 Glucagon (Glucagen) 1 mg Q15M PRN IM DECREASED GLUCOSE; Start 03/16/19 at 08:30 Glucose (Glutose) 15 gm Q15M PRN BUCCAL DECREASED GLUCOSE; Start 03/16/19 at 08:30 Multivitamins Therapeutic (Theragran) 1 tab DAILY PO Last administered on at 08:02; Admin Dose 1 TAB; Start 03/16/19 at 09:00 Folic Acid (Folic Acid) 1 mg DAILY PO Last administered on 03/18/19at 08:02; Admin Dose 1 MG; Start 03/16/19 at 09:00 Sodium Chloride 1,000 ml @ 100 mls/hr Q10H IV Last administered on 03/18/19at 02:50; Admin Dose 100 MLS/HR; Start 03/16/19 at 22:00 Diagnostic Test (Pha) (Accu-Chek) XX ; Start 03/19/19 at 02:00 Insulin Aspart (Novolog Insulin Pen) \(Adult SC Insulin - Mild Algorithm)... AC MEALS AND BEDTIME SC ; Start 03/18/19 at 02:30 MANI VALENZUELA NP Mar 18, 2019 10:26
[2019-03-18] MEDS ORDERED: MAGNESIUM SULFATE 2 GM/50 ML 50 ML IVPB ONE (10:30)
[2019-03-18 11:10] VITALS: BP 137/71; PULSE 70; RESP 22
[2019-03-18] MEDS: FENOFIBRATE 145 MG TAB PO SCH (11:31)
[2019-03-18] MEDS: FISH OIL 1,000 MG CAP PO SCH ×2 (11:32→20:20)
[2019-03-18] MEDS: LORAZEPAM 2 MG INJ IV PRN (13:29)
[2019-03-18] MEDS ORDERED: SUCRALFATE (100 MG/ML) 10ML CUP PO SCH (17:00)
--- NOTE | 2019-03-18 17:02 | PN ---
Date/Time of Note Date/Time of Note DATE: 03/18/19 TIME: 16:45 Assessment/Plan VTE Prophylaxis Risk score (from Ns)>0 risk: 1 SCD applied (from Ns): Yes Pharmacological prophylaxis: NA/contraindicated Pharm contraindication: bleeding Lines/Catheters IV Catheter Type (from Nrsg): Peripheral IV Assessment/Plan Assessment/Plan Assessment: Hematemesis/melena Status post EGD 03/17/2019 -Severe erosive esophagitis Odynophagia Acute pancreatitis-resolved Hepatomegaly with fatty infiltration Hypertension Diabetes Alcohol abuse advised cessation -Pt with elevated blood alcohol level of 133.0 on 03/16/19 Plan: Review pathology when available DC pantoprazole drip Pantoprazole twice daily Start Carafate 4 times daily Start Viscous Lidocaine 3 times daily Start Levsin 3 times daily for abdominal pain Patient is seen in collaboration with Dr. Weaver Subjective: Patient is complaining of pain with swallowing and generalized abdominal discomfort. Patient states he had a bowel movement today with small streaks of blood. Hemoglobin is stable. Patient is not tolerating the diet. We will switch to soft/bland diet. Order viscous lidocaine and Levsin for abdominal pain. Results of EGD discussed with the patient. Discussed GERD diet and alcohol cessation. Continue observation. Exam PHYSICAL EXAMINATION: GENERAL: Alert & oriented x 3, obese, in no acute distress SKIN: No lesions HEAD: Normocephalic, atraumatic, no tenderness. EYES: Pupils equal reactive to light, no discharge. EARS/NOSE AND THROAT: Ears normal, nose normal. NECK: Supple, no masses. CHEST: Inspection within normal limits. CARDIOVASCULAR: Heart: Regular rate and rhythm RESPIRATORY: Lungs clear to auscultation GASTROINTESTINAL AND LIVER: Abdomen: Soft, generalized tenderness, -distended, no hernias, no masses, hepatomegaly, no ascites, no guarding, no rebound tenderness, normoactive bowel sounds. Rectal: Deferred. EXTREMITIES: No cyanosis, clubbing or edema. Result Diagram: 03/17/19 1039 03/18/19 0515 Results 24hrs Laboratory Tests Test 03/17/19 17:29 03/17/19 21:45 03/18/19 03:04 03/18/19 05:15 Bedside Glucose 131 216 139 Sodium Level 140 Potassium Level 3.5 Chloride Level 107 Carbon Dioxide Level 25 Anion Gap 8 Blood Urea Nitrogen 14 Creatinine 0.96 Est Glomerular > 60 Filtrat Rate mL/min Glucose Level 137 Calcium Level 8.3 L Phosphorus Level 3.6 Magnesium Level 1.6 L Total Bilirubin 0.4 Direct Bilirubin 0.00 Indirect Bilirubin 0.4 Aspartate Amino 24 Transf (AST/SGOT) Alanine 36 Aminotransferase (AL T/SGPT) Alkaline Phosphatase 78 Total Protein 7.1 Albumin 3.7 Globulin 3.40 H Albumin/Globulin 1.08 Ratio Test 03/18/19 07:38 03/18/19 11:34 Bedside Glucose 146 144 Exam/Review of Systems Exam Vitals Vital Signs Date Temp Pulse Resp B/P (MAP) Pulse Ox O2 O2 Flow FiO2 Time Delivery Rate 03/18/19 98.0 70 22 137/71 95 Room Air 11:10 (93) 03/16/19 2.0 14:00 Intake and Output 03/17/19 03/17/19 03/18/19 1515:00 23:00 07:00 IntakeIntake Total 50 ml 2000 ml BalanceBalance 50 ml 2000 ml Results Results 24hrs Laboratory Tests Test 03/17/19 17:29 03/17/19 21:45 03/18/19 03:04 03/18/19 05:15 Bedside Glucose 131 216 139 Sodium Level 140 Potassium Level 3.5 Chloride Level 107 Carbon Dioxide Level 25 Anion Gap 8 Blood Urea Nitrogen 14 Creatinine 0.96 Est Glomerular > 60 Filtrat Rate mL/min Glucose Level 137 Calcium Level 8.3 L Phosphorus Level 3.6 Magnesium Level 1.6 L Total Bilirubin 0.4 Direct Bilirubin 0.00 Indirect Bilirubin 0.4 Aspartate Amino 24 Transf (AST/SGOT) Alanine 36 Aminotransferase (AL T/SGPT) Alkaline Phosphatase 78 Total Protein 7.1 Albumin 3.7 Globulin 3.40 H Albumin/Globulin 1.08 Ratio Test 03/18/19 07:38 03/18/19 11:34 Bedside Glucose 146 144 Medications Medication Current Medications IV Flush (NS 3 ml) 3 ml PER PROTOCOL IV ; Start 03/16/19 at 04:00 Ondansetron HCl (Zofran Inj) 4 mg Q6H PRN IV NAUSEA/VOMITING; Start 03/16/19 at 04:00 Acetaminophen (Tylenol Supp) 650 mg Q6H PRN CO .PAIN 1-3 OR TEMP; Start 03/16/19 at 04:00 Morphine Sulfate (morphine) 2 mg Q4H PRN IV .PAIN 7-10 Last administered on 03/18/19at 15:47; Admin Dose 2 MG; Start 03/16/19 at 04:00 Pantoprazole 80 mg/Sodium Chloride 100 ml @ 10 mls/hr Q10H IV Last administered on 03/18/19at 02:50; Admin Dose 10 MLS/HR; Start 03/16/19 at 04:30; Stop 03/18/19 at 19:00 Lorazepam (Ativan) 1 mg Q4H PRN IV CONTROL WITHDRAWAL SYMPTOMS Last a dministered on 03/18/19at 13:29; Admin Dose 1 MG; Start 03/16/19 at 04:30 Thiamine HCl (Vitamin B1) 200 mg DAILY IM Last administered on 03/16/19at 08:23; Admin Dose 200 MG; Start 03/16/19 at 04:30; Stop 03/21/19 at 04:29 Miscellaneous Information 1 ea NOTE XX ; Start 03/16/19 at 08:30 Glucose (Glutose) 15 gm Q15M PRN PO DECREASED GLUCOSE; Start 03/16/19 at 08:30 Glucose (Glutose) 22.5 gm Q15M PRN PO DECREASED GLUCOSE; Start 03/16/19 at 08:30 Dextrose (D50w Syringe) 25 ml Q15M PRN IV DECREASED GLUCOSE; Start 03/16/19 at 08:30 Dextrose (D50w Syringe) 50 ml Q15M PRN IV DECREASED GLUCOSE; Start 03/16/19 at 08:30 Glucagon (Glucagen) 1 mg Q15M PRN IM DECREASED GLUCOSE; Start 03/16/19 at 08:30 Glucose (Glutose) 15 gm Q15M PRN BUCCAL DECREASED GLUCOSE; Start 03/16/19 at 08:30 Multivitamins Therapeutic (Theragran) 1 tab DAILY PO Last administered on 03/18/19at 08:02; Admin Dose 1 TAB; Start 03/16/19 at 09:00 Folic Acid (Folic Acid) 1 mg DAILY PO Last administered on 03/18/19at 08:02; Admin Dose 1 MG; Start 03/16/19 at 09:00 Diagnostic Test (Pha) (Accu-Chek) 1 ea 02 XX ; Start 03/19/19 at 02:00 Insulin Aspart (Novolog Insulin Pen) \(Adult SC Insulin - Mild Algorithm)... AC MEALS AND BEDTIME SC ; Start 03/18/19 at 02:30 Fish Oil (Fish Oil) 2,000 mg BID PO Last administered on 03/18/19at 11:32; Admin Dose 2,000 MG; Start 03/18/19 at 10:30 Fenofibrate (Tricor) 145 mg DAILY PO Last administered on 03/18/19at 11:31; Admin Dose 145 MG; Start 03/18/19 at 10:30 TI BARRY NP Mar 18, 2019 16:56
[2019-03-18] MEDS: PANTOPRAZOLE (EC) 40 MG TAB PO SCH (17:14)
[2019-03-18] MEDS: SUCRALFATE (100 MG/ML) 10ML CUP PO SCH ×2 (17:59→20:19)
[2019-03-18] MEDS: HYOSCYAMINE 0.125 MG SUBL TAB PO SCH (17:59)
[2019-03-18 19:22] VITALS: BP 157/90; RESP 18
[2019-03-18 19:41] VITALS: BP 133/78; PULSE 77; RESP 18
[2019-03-18] MEDS: LIDOCAINE 2% VISC 15 ML CUP PO SCH (20:20)
[2019-03-19] MEDS: morphine 2 MG INJ IV PRN ×3 (00:11→09:44)
[2019-03-19] MEDS: HYOSCYAMINE 0.125 MG SUBL TAB PO SCH ×2 (00:11→05:33)
[2019-03-19 02:00] VITALS: BP 128/74; PULSE 74; RESP 18
[2019-03-19] MEDS ORDERED: ACCUCHECK AT 2AM (Patients on SS coverage) XX SCH (02:00)
[2019-03-19] MEDS: PANTOPRAZOLE (EC) 40 MG TAB PO SCH (05:32)
[2019-03-19 07:14] VITALS: BP 136/70; PULSE 65; RESP 18
[2019-03-19] MEDS ORDERED: POTASSIUM CHLORIDE (SR) 10 MEQ TAB PO ONE (08:00)
[2019-03-19] MEDS: Insulin NOVOLOG SS MILD Algorithm (SS with meals and bedtime) SC SCH ×2 (08:45→12:15)
[2019-03-19] MEDS: FISH OIL 1,000 MG CAP PO SCH (08:54)
[2019-03-19] MEDS: FOLIC ACID 1 MG TAB PO SCH (08:55)
[2019-03-19] MEDS: FENOFIBRATE 145 MG TAB PO SCH (08:55)
[2019-03-19] MEDS: MULTIVITAMINS THERAPEUTIC TAB PO SCH (08:55)
[2019-03-19] MEDS: SUCRALFATE (100 MG/ML) 10ML CUP PO SCH ×2 (08:55→12:31)
[2019-03-19] MEDS: THIAMINE 200 MG INJ IM SCH (08:56)
[2019-03-19] MEDS: LIDOCAINE 2% VISC 15 ML CUP PO SCH ×2 (08:56→12:32)
[2019-03-19] MEDS ORDERED: PANT40TA4 PO (10:07)
[2019-03-19] MEDS ORDERED: FENO145T37 PO (10:07)
[2019-03-19] MEDS ORDERED: FOLI-49 PO (10:07)
[2019-03-19] MEDS ORDERED: CARAS PO (10:07)
[2019-03-19] MEDS ORDERED: OMEG100024 PO (10:07)
[2019-03-19] MEDS ORDERED: MULTI PO (10:07)
--- NOTE | 2019-03-19 10:11 | PDOCDIS ---
Discharge Instructions CONDITION [id number] Patient Condition: [id number] Stable HOME CARE INSTRUCTIONS: [id number] Diet Instructions: [id number] Low Fat /Cholesterol FOLLOW UP/APPOINTMENTS Follow-up Plan Zachery Reynoso MD Specialty: Internal Medicine Office Address: [address] [place], [place] [id number] Office OTHER ORDERS: Other Orders: 1. Take medications as per prescription. 2. Take a low-cholesterol diet as tolerated. 3. Avoid using NSAIDs (ibuprofen, aspirin, naproxen, etc.). 4. Resume activities as tolerated. 5. Abstain from using alcohol. 6. Please go to the nearest emergency room if you have significant abdominal pain, persistent nausea/vomiting, or any other unusual signs/symptoms. 7. Please follow-up with your primary care physician in 2 weeks. If you do not have a primary care physician, please call Dr. Zachery Reynoso's office. MANI VALENZUELA NP Mar 19, 2019 10:10
--- NOTE | 2019-03-19 10:21 | DS ---
Date/Time of Note Date/Time of Note DATE: 03/19/19 TIME: 10:16 Discharge Summary Admission/Discharge Info Admit Date/Time Mar 16, 2019 at 03:43 Discharge Date/Time Discharge Diagnosis 1. Upper gastrointestinal bleeding. 2. Severe erosive gastritis. 3. Alcohol abuse. 4. Diabetes mellitus. A1C 5.9. 5. Hypertension. 6. Moderate hypertriglyceridemia. 7. Obesity. BMI more than 31 kg/m. 8. Normocytic, normochromic anemia. Patient Condition: Stable Consults 1. Taurus Waever MD, Gastroenterology. Procedures Esophagogastroduodenoscopy on 03/17/2019 Impression: Severe erosive gastritis. CT Abdomen & Pelvis IMPRESSION: No evidence of urolithiasis, obstructive uropathy or diverticulitis. Nonvisualization appendix. Stranding fat with small volume fluid anterior to crossing duodenum. Question duodenitis. No discrete collection. Postsurgical clips gastric fundus. Hx of Present Illness This is a 43-year-old male with comorbidities including hypertension, diabetes mellitus type 2, and alcohol abuse who presented to the emergency department with chief complaint of abdominal pain and multiple episodes of coffee-ground emesis, who was admitted to inpatient setting for further treatment and evaluation. Hospital Course The patient was started on octreotide and Protonix drip. Type and screen was done for possible blood transfusion. The patient's H&H remained fairly stable and did not require any blood transfusion. Gastroenterology consult was obtained. The patient underwent an esophagogastroduodenoscopy on 03/17/2019 that was showing severe erosive gastritis. There was no evidence of any esophageal varices. Therefore, the patient's octreotide was discontinued. The patient was maintained on Protonix drip for 24 more hours as per instructions of gastroenterology. Gastric biopsy results are pending at this time. The patient also underwent a CT scan of the abdomen and pelvis that was negative for any acute changes. The patient's abdominal pain could have been most probably secondary to his underlying erosive gastritis. The patient was also started on mucosal barrier protectants and anticholinergics for symptom relief. The patient is a current alcohol abuser. The patient had a alcohol level of 133 on the day of admission. The patient was monitored for any delirium tremens. The patient was maintained on multivitamins. The patient was advised multiple times on the importance of staying away from the use of alcohol. The patient has a history of diabetes mellitus. However, the patient's hemoglobin A1c was found to be 5.9. The patient was on sliding scale insulin throughout the hospital course. Upon discharge, he will be discharged without any antidiabetic medications. He also has documented history of hypertension. The patient's blood pressure remained fairly stable without any antihypertensives. The patient was noticed to have moderate hypertriglyceridemia. The patient was started on therapy with fibrates and fish oil for prevention of acute pancreatitis since the patient specifically has a prior history of pancreatitis. The patient was noticed to be obese with a BMI of 31 kg/m. The patient was advised on weight reduction. The patient had a stable hospital course. The patient is stable to be discharged home. Discharge Instructions 1. Take medications as per prescription. 2. Take a low-cholesterol diet as tolerated. 3. Avoid using NSAIDs (ibuprofen, aspirin, naproxen, etc.). 4. Resume activities as tolerated. 5. Abstain from using alcohol. 6. Please go to the nearest emergency room if you have significant abdominal pain, persistent nausea/vomiting, or any other unusual signs/symptoms. 7. Please follow-up with your primary care physician in 2 weeks. If you do not have a primary care physician, please call Dr. Zachery Reynoso's office. The patient verbalized understanding of his discharge instructions. At this time I would like to thank all the consultants for seeing the patient, doing the necessary procedures, and providing clinical recommendations. The patient was seen in collaboration with Dr. Herrera. Home Meds Active Scripts Multivitamins* (Theragran*) 1 Tab Tab, 1 TAB PO DAILY, #30 TAB Prov:MANI VALENZUELA NP 03/19/19 Folic Acid* (Folic Acid*) 1 Mg Tablet, 1 MG PO DAILY, #30 TAB Prov:MANI VALENZUELA NP 03/19/19 Sucralfate* (Carafate*) 1 Gm/10 Ml Susp, 1 GM PO QID for 10 Days, #40 UNIT Prov:MANI VALENZUELA NP 03/19/19 Pantoprazole* (Pantoprazole*) 40 Mg Tablet.dr 40 MG PO BID@06,18, #60 TAB Prov:MANI VALENZUELA NP 03/19/19 [place]-3/Dha/Epa/Fish Oil (Fish Oil 1,000 mg Softgel) 1,000 Mg Capsule, 2000 MG PO BID, #120 CAP 2 caps (2,000 mg) PO BID. Prov:MANI VALENZUELA COMIC ILLUSTRATOR 03/19/19 Fenofibrate Nanocrystallized* (Fenofibrate*) 145 Mg Tablet, 145 MG PO DAILY, #30 TAB Prov:MANI VALENZUELA COMIC ILLUSTRATOR 03/19/19 Discontinued Reported Medications Metformin* (Glucophage*) 1,000 Mg Tablet, 1000 MG PO BID, #60 TAB 05/25/17 Follow-up Plan Zachery Reynoso MD Specialty: Internal Medicine Office Address: [address] [place] [address] [place] [id number] Office Primary Care Provider Care Physician No Primary Time spent on discharge: > 30 minutes Pending Labs Laboratory Tests Test 03/18/19 11:34 03/18/19 16:46 03/18/19 20:19 03/19/19 02:41 Bedside 144 153 189 111 Glucose mg/dL (70-220) mg/dL (70-220) mg/dL (70-220) mg/dL (70-220) Test 03/19/19 04:52 03/19/19 08:24 White Blood 5.1 Count 10^3/ul (4.8-10 .8) Red Blood 4.06 Count 10^6/ul (4.70-6 .10) Hemoglobin 12.6 g/dl (14.0-18.0 ) Hematocrit 35.9 % (42.0-52.0) Mean 88.4 Corpuscular fl (82.0-101.0) Volume Mean 31.0 Corpuscular pg (29.0-33.0) Hemoglobin Mean 35.1 Corpuscular g/dl (32.0-37.0 Hemoglobin Conc ) ent Red Cell 12.7 Distribution % (11.5-14.5) Width Platelet Count 203 10^3/UL (140-41 5) Mean Platelet 8.8 Volume fl (7.4-10.4) Immature 1.600 Granulocytes % % (0.001-0.429) Neutrophils % 67.9 % (39.0-77.0) Lymphocytes % 20.0 % (15.0-51.0) Monocytes % 8.9 % (0.0-11.0) Eosinophils % 1.2 % (0.0-7.0) Basophils % 0.4 % (0.0-2.0) Nucleated Red 0.0 Blood Cells % /100WBC (0.0-0. 0) Immature 0.080 Granulocytes # 10^3/ul (0.0-0. 031) Neutrophils # 3.5 10^3/ul (1.6-7. 5) Lymphocytes # 1.0 10^3/ul (0.8-2. 9) Monocytes # 0.5 10^3/ul (0.3-0. 9) Eosinophils # 0.1 10^3/ul (0.0-0. 5) Basophils # 0.0 10^3/ul (0.0-0. 1) Nucleated Red 0.0 Blood Cells # 10^3/ul (0.0-0. 0) Sodium Level 139 mmol/L (135-144 ) Potassium 3.3 Level mmol/L (3.5-5.1 ) Chloride Level 105 mmol/L (97-110) Carbon Dioxide 23 Level mmol/L (21-31) Anion Gap 11 (5-13) Blood Urea 8 mg/dl (7-20) Nitrogen Creatinine 0.84 mg/dl (0.61-1.2 4) Est Glomerular > 60 Filtrat mL/min (>60) Rate mL/min Glucose Level 118 mg/dl (70-220) Calcium Level 8.9 mg/dl (8.4-10.2 ) Phosphorus 3.7 Level mg/dl (2.5-4.9) Magnesium 1.8 Level mg/dl (1.7-2.5) Total 0.5 Bilirubin mg/dl (0.2-1.3) Direct 0.00 Bilirubin mg/dl (0.00-0.2 0) Indirect 0.5 Bilirubin mg/dl (0-1.1) Aspartate Amino 161 Transf (AST/SGO IU/L (15-46) T) Alanine 79 IU/L (13-69) Aminotransferas e (ALT/SGPT) Alkaline 121 Phosphatase IU/L (42-121) Total Protein 7.2 g/dl (6.1-8.1) Albumin 3.8 g/dl (3.3-4.9) Globulin 3.40 g/dl (1.3-3.2) Albumin/Globuli 1.11 n Ratio Bedside 129 Glucose mg/dL (70-220) MANI VALENZUELA NP Mar 19, 2019 10:21
== END 2019-03-19 13:40 | disposition home or self-care (01) | DRG 379 ==
LOC: E/R 20:55 → 6WM 03-16 03:43 → EDBEDREQ 03-16 16:10 → MS1 03-18 13:11
PROVIDERS: ADMIT Family Medicine; ATTEND Family Medicine
PROC: 0DB68ZX Excision of Stomach, Via Natural or Artificial Opening Endoscopic, Diagnostic (ICD-10-PCS; principal; 2019-03-17 17:00)
DX: K29.61 Other gastritis with bleeding (principal); Y90.6 Blood alcohol level of 120-199 mg/100 ml; F10.10 Alcohol abuse, uncomplicated; E66.9 Obesity, unspecified; D64.9 Anemia, unspecified; I10 Essential (primary) hypertension; E78.1 Pure hyperglyceridemia; Z68.31 Body mass index [BMI] 31.0-31.9, adult; E11.9 Type 2 diabetes mellitus without complications
CPT/HCPCS: 36415; 71045; 74176; 74177; 80053; 80061; 80307; 82150; 82962; 83036; 83690; 83735; 84100; 84484; 85025; 85610; 85730; 86850; 86900; 86901; 88305; 88312; 93005; 96374; 96375; 96376; C9113; J0696; J1170; J1815; J2001; J2060; J2270; J2354; J2405; J3411; J3475; J7030; J7040; Q9967

== ENCOUNTER 2019-03-27 18:00 | Emergency (ER) | payer MEDICARE ==
[~2019-03-27] VITALS: Ht 167.6 cm; Wt 96.2 kg
[~2019-03-27 18:00] MED LIST changes: +CARAS PO; +FENO145T37 PO; +FOLI-49 PO; -MTF1000T PO; +MULTI PO; +OMEG100024 PO; +PANT40TA4 PO
[2019-03-27 18:20] VITALS: Ht 167.6 cm; Wt 96.2 kg
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
[2019-03-27 20:50] VITALS: BP 121/70; PULSE 100; RESP 18
[2019-03-27] MEDS ORDERED: ONDANSETRON 4 MG INJ IV STA (20:51)
[2019-03-27] MEDS ORDERED: morphine 4 MG/ML VIAL IV STA (20:51)
[2019-03-27] MEDS ORDERED: SOD CHLORIDE 0.9% 1,000 ML IV STA (20:51)
[2019-03-27] MEDS ORDERED: PANTOPRAZOLE 40 MG INJ IV ONE (21:00)
[2019-03-27] MEDS ORDERED: LANS30CA47 PO (22:43)
[2019-03-27] MEDS ORDERED: FAMO-96 PO (22:43)
== END 2019-03-27 23:24 | disposition home or self-care (01) ==
LOC: E/R 18:00
DX: K29.20 Alcoholic gastritis without bleeding (principal); F10.10 Alcohol abuse, uncomplicated; I10 Essential (primary) hypertension; E11.9 Type 2 diabetes mellitus without complications; E66.9 Obesity, unspecified
CPT/HCPCS: 36415; 71045; 80053; 80307; 82962; 83690; 84484; 85025; 85610; 85730; 93005; 96374; 96375; 99285; C9113; J2270; J2405; J7030

== ENCOUNTER 2019-04-01 22:59 | Emergency (ER) | payer SELFPAY ==
[~2019-04-01] VITALS: Ht 177.8 cm; Wt 104.5 kg
[~2019-04-01 22:59] MED LIST changes: +FAMO-96 PO; +LANS30CA47 PO
[2019-04-01 23:03] VITALS: BP 115/68; PULSE 110; RESP 18; Ht 177.8 cm; Wt 104.5 kg
== END 2019-04-02 01:34 | disposition left against medical advice (07) ==
LOC: FTE 22:59
DX: Z53.21 Procedure and treatment not carried out due to patient leaving prior to being seen by health care provider (principal)

== ENCOUNTER 2019-04-03 01:58 | Emergency (ER) | payer MEDICARE ==
[~2019-04-03] VITALS: Ht 172.7 cm; Wt 100.0 kg
[2019-04-03 04:11] VITALS: Ht 172.7 cm; Wt 100.0 kg
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
[2019-04-03] MEDS ORDERED: SOD CHLORIDE 0.9% 1,000 ML IV ONE (05:00)
[2019-04-03] MEDS ORDERED: FAMOTIDINE 20 MG INJ IV ONE (05:00)
[2019-04-03] MEDS ORDERED: AL HYDROX/MG HYDROX/SIMETH 30 ML CUP PO ONE (16:30)
[2019-04-03] MEDS ORDERED: LORAZEPAM 2 MG INJ IV ONE (17:00)
--- NOTE | 2019-04-03 17:47 | PSY ---
Date/Time of Note Date/Time of Note DATE: 04/03/19 TIME: 17:31 Psychiatric Subjective Eval Subjective Evaluation Patient location: emergency Chief Complaint: bib [id number]/lapd, patient now claims he is suicidal, c/o abd pain, etoh Reason for consult: si History of present illness patient is a 43 yo male with PPH Of depression with psychosis and anxiety who came to the ER due to abdominal pain, alcohol intoxication and si, patient states that he has been feeling suicidal for the past 3 days and thinks that it is because of being on latuda 60 mg that he has been taking for the past few months, he states that he has been hearing voices telling him to kill himself, feels paranoid, depressed, hopeless and helpless , he wants to by cutting his wrist , he has 2 past suicidal attempts , states that he drank to try to make the voies go away Past psychiatric history past suicidal attempt 2 Hospitalization: yes Family History denies Medical history Problems Medical Problems: (1) Abdominal pain Status: Acute (2) Alcohol abuse Status: Acute (3) Alcohol abuse Status: Acute (4) Alcohol abuse Status: Acute (5) Ankle injury Status: Acute (6) Ankle pain Status: Acute (7) Chest pain Status: Acute (8) Erosive gastritis Status: Acute (9) ETOH abuse Status: Acute (10) Gastritis Status: Acute (11) Lower GI bleed Status: Acute (12) Nausea & vomiting Status: Acute (13) Normocytic anemia Status: Acute (14) Pancreatitis Status: Acute (15) Patient left after triage Status: Acute (16) Patient left after triage Status: Acute (17) Patient left without being seen Status: Acute (18) Suicidal ideation Status: Acute (19) Upper GI bleed Status: Acute Allergies: Coded Allergies: No Known Allergy (Unverified , 04/03/19) Substance Abuse Substance use: No known substance abuse Social History Marital status: single DPA/Conservatorship: No Psychiatric Objective Eval Physical Examination: Physical Examination: Applicable Sleep: Insomnia Appetite: Increased Energy: Adequate Interest: Adequate Mental Status Examination: Appearance: Groomed Eye Contact: Good Psychomotor Activity: Normal Speech: Clear AFFECT: Depressed Mood: Depressed Though Process: Linear Thought Content: Hallucinations Suicidal: Yes Homicidal: No On 72 hour hold: No Orientation: x4 Insight: Impared Judgement: Impared Attention Span: Intact Laboratory Results Laboratory Tests Test 04/03/19 04:20 White Blood Count 7.4 10^3/ul Red Blood Count 4.44 10^6/ul Hemoglobin 14.0 g/dl Hematocrit 40.4 % Mean Corpuscular Volume 91.0 fl Mean Corpuscular Hemoglobin 31.5 pg Mean Corpuscular Hemoglobin Concent 34.7 g/dl Red Cell Distribution Width 13.2 % Platelet Count 354 10^3/UL Mean Platelet Volume 8.9 fl Immature Granulocytes % 1.500 % Neutrophils % 50.6 % Lymphocytes % 35.2 % Monocytes % 10.7 % Eosinophils % 1.0 % Basophils % 1.0 % Nucleated Red Blood Cells % 0.0 /100WBC Immature Granulocytes # 0.110 10^3/ul Neutrophils # 3.7 10^3/ul Lymphocytes # 2.6 10^3/ul Monocytes # 0.8 10^3/ul Eosinophils # 0.1 10^3/ul Basophils # 0.1 10^3/ul Nucleated Red Blood Cells # 0.0 10^3/ul Urine Color STRAW Urine Clarity CLEAR Urine pH 5.0 Urine Specific [place] 1.004 Urine Ketones NEGATIVE mg/dL Urine Nitrite NEGATIVE mg/dL Urine Bilirubin NEGATIVE mg/dL Urine Urobilinogen NEGATIVE mg/dL Urine Leukocyte Esterase NEGATIVE Jil/ul Urine Microscopic RBC 0 /HPF Urine Microscopic WBC 1 /HPF Urine Hemoglobin NEGATIVE mg/dL Urine Glucose NEGATIVE mg/dL Urine Total Protein NEGATIVE mg/dl Sodium Level 145 mmol/L Potassium Level 3.6 mmol/L Chloride Level 110 mmol/L Carbon Dioxide Level 20 mmol/L Anion Gap 15 Blood Urea Nitrogen 11 mg/dl Creatinine 1.15 mg/dl Est Glomerular Filtrat Rate mL/min > 60 mL/min Glucose Level 163 mg/dl Calcium Level 9.8 mg/dl Total Bilirubin 0.2 mg/dl Direct Bilirubin 0.00 mg/dl Indirect Bilirubin 0.2 mg/dl Aspartate Amino Transf (AST/SGOT) 29 IU/L Alanine Aminotransferase (ALT/SGPT) 29 IU/L Alkaline Phosphatase 75 IU/L Total Protein 8.9 g/dl Albumin 4.9 g/dl Globulin 4.00 g/dl Albumin/Globulin Ratio 1.22 Lipase 131 U/L Salicylates Level < 1.0 mg/dl Urine Opiates Screen Negative Acetaminophen Level < 10.0 ug/ml Urine Barbiturates Negative Urine Amphetamines Screen Negative Urine Benzodiazepines Screen Negative Urine Cocaine Screen Negative Urine Cannabinoids Negative Ethyl Alcohol Level 272.0 mg/dl Assessment and Plan Assessment/Diagnosis 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
[2019-04-03] MEDS ORDERED: LORAZEPAM 1 MG TAB PO ONE (22:30)
[2019-04-04] MEDS ORDERED: LORAZEPAM 1 MG TAB PO ONE (03:30)
[2019-04-04 13:00] VITALS: BP 121/70; PULSE 87; RESP 20
== END 2019-04-04 15:24 | disposition home or self-care (01) ==
LOC: E/R 01:58
DX: K29.60 Other gastritis without bleeding (principal); F10.10 Alcohol abuse, uncomplicated; R45.851 Suicidal ideations; I10 Essential (primary) hypertension
CPT/HCPCS: 36415; 74176; 80053; 80307; 81003; 83690; 85025; 96374; 96375; 99285; J2060; J7030

== ENCOUNTER 2019-05-11 21:31 | Emergency (ER) | payer MEDICARE ==
[~2019-05-11] VITALS: Ht 175.3 cm; Wt 90.0 kg
[~2019-05-11 21:31] MED LIST changes: -CARAS PO
[2019-05-11 21:34] VITALS: Ht 175.3 cm; Wt 90.0 kg
[2019-05-11] MEDS ORDERED: NALOXONE (0.4 MG/ML) INJ ONE (23:01)
[2019-05-11] MEDS ORDERED: NALOXONE (0.4 MG/ML) INJ IM ONE (23:30)
[2019-05-12 00:30] VITALS: BP 105/72; PULSE 96; RESP 18
== END 2019-05-12 00:40 | disposition home or self-care (01) ==
LOC: E/R 21:31
DX: T40.1X1A Poisoning by heroin, accidental (unintentional), initial encounter (principal); R40.2142 Coma scale, eyes open, spontaneous, at arrival to emergency department; R40.2362 Coma scale, best motor response, obeys commands, at arrival to emergency department; R40.2252 Coma scale, best verbal response, oriented, at arrival to emergency department; T40.601A Poisoning by unspecified narcotics, accidental (unintentional), initial encounter; F10.920 Alcohol use, unspecified with intoxication, uncomplicated; I10 Essential (primary) hypertension
CPT/HCPCS: 80053; 80307; 85025; 99285; J2310

== ENCOUNTER 2019-07-14 11:28 | Emergency (ER) | payer MEDICAID, MEDICARE ==
[~2019-07-14] VITALS: Ht 172.7 cm; Wt 104.5 kg
[~2019-07-14 11:28] MED LIST changes: -FENO145T37 PO; -FOLI-49 PO; -LANS30CA47 PO; -MULTI PO; -OMEG100024 PO; -PANT40TA4 PO
[2019-07-14 11:30] VITALS: BP 128/91; PULSE 80; RESP 18; Ht 172.7 cm; Wt 104.5 kg
== END 2019-07-14 17:26 | disposition left against medical advice (07) ==
LOC: E/R 11:28
DX: Z53.21 Procedure and treatment not carried out due to patient leaving prior to being seen by health care provider (principal)